=== PATIENT | male | born 1960 | race Caucasian/White ===

== ENCOUNTER 2016-07-13 06:07 | Day surgery (SDC) | payer BC ==
[2016-07-13] VITALS (13 sets, daily range): BP systolic 102–125; BP diastolic 58–76; PULSE 72–86; RESP 14–16; TEMP 97–98; O2SAT 92–98; Ht 175.3 cm; Wt 72.6 kg
[~2016-07-13] VITALS: Ht 175.3 cm; Wt 72.6 kg
[~2016-07-13 06:07] MED LIST: BUPR300T59 PO; DIPH25CA84 PO; LAMO300T2 PO; LORA-864 PO; METH750T89 PO; MULT-806 PO; OMEG-48 PO; PANT40TA25 PO; PARO20TA43 PO; PRAV20TA PO; PROP20TA7 PO; TAMS-1 PO
--- OUTSIDE RECORDS SUMMARY | 2016-07-13 06:11 | XMS REPORT | Continuity of Care Document ---
Author Author [facility] Organization [facility] Address Unknown Phone Unavailable Support Name Relationship Address Phone BONNY MEDEIROS MD Caregiver [facility] [address] [place] [address] CLAUDIA TRAMMELL [address] [place] [address] GLENIS BRIONES DO Caregiver [facility] [address] [place] [address] [address]UD[address] [place] [phone] JHON RYAN Next Of Kin [address] [place] [address] Insurance Providers Payer Name Policy Number Subscriber Name Relationship [facility] [id number] Emma Ryan 16 Self Advance Directives Directive Response Recorded Date/Time Ordered Resuscitation Status Full Code, unverified 12/01/13 3:02pm Problems No known problems or medical conditions. Medications Medication Dose Route Sig Days/Qty Instructions Order Date Discontinued Date Status Paroxetine Hcl 30 Mg PO DAILY 04/30/08 05/06/12 Discontinued [place] Carbonate 300 Mg PO 2 TAB PM 04/30/08 02/06/10 Discontinued Ibuprofen 200 Mg PO NEEDED 04/30/08 02/06/10 Discontinued Multivitamins 1 Tab PO NEEDED 04/30/08 02/06/10 Discontinued Loratadine 10 Mg PO NEEDED 02/06/10 02/21/10 Discontinued Omeprazole 20 Mg PO NEEDED 02/06/10 05/06/12 Discontinued [Lanotrigin] BEDTIME 02/06/10 05/06/12 Discontinued Risperidone 0.5 Mg PO DAILY 03/27/11 Active Pravastatin Sodium 20 Mg PO 03/27/11 05/06/12 Discontinued Pravastatin Sodium 20 Mg PO DAILY 04/24/11 05/11/11 Discontinued Multivitamins 1 Tab PO DAILY 05/06/12 Active Glucosamine/D3/[place] 1 Each PO DAILY 05/06/12 Active Meloxicam 15 Mg PO DAILY PRN 05/06/12 Active Methocarbamol 750 Mg PO EVERY 4 HOURS PRN 05/06/12 Active Pantoprazole Sodium 40 Mg PO DAILY 05/06/12 Active [Fish Oil] 12/01/13 Active Lamotrigine 1 Tab PO DAILY 12/01/13 Active Methylphenidate HCl 18 Mg PO DAILY 12/01/13 Active Loratadine/Pseudoephedrine 1 Tab PO DAILY 12/01/13 Active Pravastatin Sodium 20 Mg PO BEDTIME Take 1 tablet, by mouth, 1 times daily (at bedtime). 12/01/13 Active Ergocalciferol (Vitamin D2) 50,000 Unit PO WEEKLY 12/01/13 Active Bupropion HCl 300 Mg PO DAILY 30 Qty 12/01/13 Active Fluticasone Propionate 2 [place] EA NOSTRIL DAILY 12/01/13 Active Diphenhydramine HCl 2 Cap PO Q4H PRN SLEEP 12/02/13 Active Social History Social History Problem Response Recorded Date/Time Smoking Status Former smoker 12/02/2013 6:27am When did patient START smoking? 16 12/02/2013 6:27am When did patient STOP smoking? 26 12/02/2013 6:27am Chewing Tobacco Status No 05/06/2012 3:43pm Hx Substance Use No 12/02/2013 6:27am Hx Alcohol Use Y HISTORY OF ALCOHOL 30 YEARS AGO 12/02/2013 6:27am Has the pt used tobacco in the last 12 months No 12/02/2013 6:27am Query Response Start Date Stop Date Smoking Status Former smoker Hospital Discharge Instructions No hospital discharge instructions. Plan of Care No plan of care. Functional Status No functional status results. Allergies, Adverse Reactions, Alerts Allergen Type Severity Reaction Status Last Updated No Known Drug Allergies Allergy Unknown Active 04/29/08 Immunizations Name Given Type Hx Influenza Vaccination No Historical Hx Pneumococcal Vaccination No Historical Hx Influenza Vaccination No Historical Vital Signs Acute Vital Signs Vital Response Date/Time Temperature (Fahrenheit) 97.3 deg F (96.8 - 99.1) Temperature (Calculated Celsius) 36.18364 degrees C (36.0 - 37.3) Temperature Source Temporal Pulse Rate (adult) 74 bpm (60 - 100) Respiratory Rate 16 breaths/min (10 - 20) O2 Sat by Pulse Oximetry 95 % (90 - 100) Oxygen Delivery Method Room Air Blood Pressure 111/59 mm Hg Blood Pressure Source Automatic Cuff Height 5 ft 9 in Weight 166 lb Body Mass Index 24.0 kg/m^2 Results Test Source Date Result Interp. Ref. Range Comments Alanine Aminotransferase (ALT/SGPT) May 25, 2012 9:20am 61 U/L N 21 -72 Albumin May 25, 2012 9:20am 4.4 G/DL N 3.5-5.0 Albumin/Globulin Ratio May 25, 2012 9:20am 1.7 RATIO N 1.1-2.2 Alkaline Phosphatase May 25, 2012 9:20am 84 U/L N 38-126 Anion Gap May 25, 2012 9:20am 14 MEQ/L N 5-15 Aspartate Amino Transf (AST/SGOT) May 25, 2012 9:20am 38 U/L N 17- 59 BUN/Creatinine Ratio May 25, 2012 9:20am 8 RATIO N 6-26 Basophils # (Auto) May 25, 2012 9:20am 0.1 T/MM3 N 0-0.2 Basophils (%) (Auto) May 25, 2012 9:20am 0.9 % N 0-2 Blood Urea Nitrogen May 25, 2012 9:20am 7.0 MG/DL L 9-20 Calcium Level May 25, 2012 9:20am 8.8 MG/DL N 8.4-10.2 Calculated Osmolality May 25, 2012 9:20am 272 MOSM/KG N 261-280 Carbon Dioxide Level May 25, 2012 9:20am 26 MEQ/L N 22-30 Chloride Level May 25, 2012 9:20am 103 MEQ/L N 98-107 Cholesterol Level September 27, 2013 8:17am 150 MG/DL N 132-199 Cholesterol/HDL Ratio September 27, 2013 8:17am 4.7 RATIO N 0-5.0 Creatinine May 25, 2012 9:20am 0.9 MG/DL N 0.8-1.5 Eosinophils # (Auto) May 25, 2012 9:20am 0.2 T/MM3 N 0-0.5 Eosinophils (%) (Auto) May 25, 2012 9:20am 2.9 % N 0-4 Erythrocyte Sedimentation Rate May 25, 2012 9:20am 1 MM/HR N 0-15 Free Thyroxine February 17, 2011 6:54am 0.88 NG/DL N 0.78-2.19 Globulin May 25, 2012 9:20am 2.6 G/DL N 2.4-3.6 Glucose Level May 25, 2012 9:20am 88 MG/DL N 75-110 Hematocrit May 25, 2012 9:20am 47.4 % N 41-53 Hemoglobin May 25, 2012 9:20am 15.9 GM/DL N 13.5-17.5 LDL Cholesterol, Calculated September 27, 2013 8:17am 86.4 N 66-159 [place] Level April 24, 2008 9:47am 0.4 MMOL/L L 0.6-1.2 Lymphocytes # (Auto) May 25, 2012 9:20am 1.8 T/MM3 N 1-4.8 Lymphocytes (%) (Auto) May 25, 2012 9:20am 32.6 % N 23-45 Mean Corpuscular Hemoglobin May 25, 2012 9:20am 27.5 UUG N 26-34 Mean Corpuscular Hemoglobin Concent May 25, 2012 9:20am 33.5 GM/DL N 31-37 Mean Corpuscular Volume May 25, 2012 9:20am 82.0 UM3 N 80-100 Mean Platelet Volume May 25, 2012 9:20am 9.2 UM3 L 9.4-12.4 Monocytes # (Auto) May 25, 2012 9:20am 0.6 T/MM3 N 0-0.8 Monocytes (%) (Auto) May 25, 2012 9:20am 11.3 % H 0-9.0 Neutrophils # (Auto) May 25, 2012 9:20am 2.9 T/MM3 N 1.8-7.7 Neutrophils (%) (Auto) May 25, 2012 9:20am 52.1 % N 33-66 Platelet Count May 25, 2012 9:20am 247 T/MM3 N 130-400 Potassium Level May 25, 2012 9:20am 4.3 MEQ/L N 3.6-5 RDW Standard Deviation May 25, 2012 9:20am 40.0 FL N 36.9-50.2 Red Blood Count May 25, 2012 9:20am 5.78 M/MM3 N 4.50-5.90 Sodium Level May 25, 2012 9:20am 143 MEQ/L N 134-144 Thyroid Stimulating Hormone (TSH) May 25, 2012 9:20am 0.85 MIU/L N 0.47-4.68 Total Bilirubin May 25, 2012 9:20am 0.40 MG/DL N 0.20-1.30 Total Protein May 25, 2012 9:20am 7.0 G/DL N 6.3-8.2 Total Testosterone May 25, 2012 9:20am Ref lab rpt scanned - -- - 05/27/12 [id number] ---TESTOT previously reported as: SEND OUT Triglycerides Level September 27, 2013 8:17am 158 MG/DL N 40-160 Urine Bilirubin February 17, 2011 6:54am Negative - Urine Blood February 17, 2011 6:54am Negative - Urine Collection Type February 17, 2011 6:54am Voided - Urine Color February 17, 2011 6:54am Yellow - Urine Glucose (UA) February 17, 2011 6:54am Negative - Urine Ketones February 17, 2011 6:54am Negative - Urine Leukocyte Esterase February 17, 2011 6:54am Negative - Urine Nitrite February 17, 2011 6:54am Negative - Urine Protein February 17, 2011 6:54am Negative - Urine Specific [place] February 17, 2011 6:54am 1.005 L - Urine Turbidity February 17, 2011 6:54am Clear - Urine Urobilinogen February 17, 2011 6:54am Normal EU/DL - Urine pH February 17, 2011 6:54am 8.0 - VLDL Cholesterol September 27, 2013 8:17am 31.6 MG/DL H 0-28 White Blood Count May 25, 2012 9:20am 5.5 T/MM3 N 4.5-11.0 Lab Scanned Report September 27, 2013 12:08pm LAB TEST FORM REQUEST [id number] - EKG April 23, 2008 1:05pm Complete - HDL Cholesterol Direct September 27, 2013 8:17am 32 MG/DL L 40-60 Glomerular Filtration Rate Calc May 25, 2012 9:20am 88 - Immature Granulocyte # (Auto) May 25, 2012 9:20am 0.01 T/MM3 N 0.00 -0.03 Immature Granulocyte % (Auto) May 25, 2012 9:20am 0.2 % N 0.0-0.5 25-Hydroxy Vitamin D Total September 27, 2013 8:17am 45 ng/mL - The desirable level of 25-Hydroxy Vitamin D Total(D2 + D3) is 30-74 ng/mL.A level consistently >200 is potentially toxic. Vitamin D, 25-Hydroxy performed at [facility] Reference Lab, [facility] [place][note 2][address] [place] [address] Oil Spot Washer Shandra Palm MD 25-Hydroxy Vitamin D2 September 27, 2013 8:17am 9 ng/mL - 25-Hydroxy Vitamin D3 September 27, 2013 8:17am 36 ng/mL - Urine Microscopic Not Indicated February 17, 2011 6:54am Not indicated - Procedures Procedure Status Date Provider(s) Esophagogastroduodenoscopy (EGD) with closed biopsy completed 12/02/13 GLENIS BRIONES DO Encounters Encounter Location Date/Time Registered Clinic [facility] 09/27/13 8:12am
[2016-07-13] MEDS ORDERED: LIDOCAINE 1% (10mg/ml) 2ml SDV INJ ONE (07:00)
[2016-07-13] MEDS ORDERED: LR 1,000 ML IV SCH (07:00)
[2016-07-13] MEDS ORDERED: SALINE FLUSH 10ml SYRINGE ONE (07:07)
[2016-07-13] MEDS ORDERED: MIDAZOLAM 5mg/5ml INJECTION ONE (07:07)
[2016-07-13] MEDS ORDERED: FENTANYL 100mcg/2ml INJECTION ONE (07:07)
[2016-07-13] MEDS ORDERED: LIDOCAINE VISCOUS 2% Oral Soln 15ml UD ONE (07:11)
[2016-07-13] MEDS ORDERED: BENZOCAINE 20% Top. Anesth. SPRAY UD ONE (07:11)
[2016-07-13] MEDS ORDERED: FENTANYL 100mcg/2ml INJECTION IV PRN (07:50)
[2016-07-13] MEDS ORDERED: MIDAZOLAM 5mg/5ml INJECTION IV PRN (07:50)
--- NOTE | 2016-07-13 13:02 | OPNOTEF ---
DATE OF PROCEDURE: 07/13/2016 PHYSICIAN: Catracho Rudolph DO PROCEDURE: Esophagogastroduodenoscopy. INDICATION FOR PROCEDURE History of Fajardo's and continued reflux. ASA CLASSIFICATION: 2 DESCRIPTION OF PROCEDURE Consent was signed and on the chart. Routine monitoring with ECG, continuous oximetry and noninvasive blood pressure was performed throughout the procedure and found to be within normal limits. IV sedation was performed with a total of 5 mg of Versed and 50 mcg of fentanyl. Prior to the procedure, the patient was brought to the endoscopy lab where a brief review of his medical history and physical exam was performed. The procedure was described to him. He was agreeable to continue. All questions were answered. He was sprayed with a topical anesthetic to the posterior pharynx, given IV sedation, placed in left lateral decubitus position. The endoscope was advanced into the posterior pharynx without difficulty. Visualization of his vocal cords was normal. The endoscope was advanced into the esophagus down through the stomach through the pylorus into the second part of the duodenum. The second part of the duodenum was normal. The endoscope was brought back to the first part of the duodenum at the duodenal cap and this part demonstrated duodenitis which was photographed and biopsied. The antrum also had evidence of antral gastritis which was photographed and biopsied. The endoscope was retroflexed. There was no appreciable hiatal hernia at this time. The stomach was decompressed and the endoscope brought back to the GE junction noting reflux esophagitis, LA classification A, with islands of Fajardo's change. A photograph was taken, biopsies performed. The remainder of his esophagus was free of pathology. He tolerated the procedure well. There were no complications. IMPRESSION 1. Reflux esophagitis, LA classification A, with some Fajardo's type change - biopsied. 2. Antral gastritis - biopsied. 3. Duodenitis at the duodenal cap - biopsied. RECOMMENDATIONS 1. Review the path report when available. 2. Continue Protonix and Carafate. MTDD
== END 2016-07-13 09:15 | disposition home or self-care (01) ==
LOC: NSC 06:07
PROVIDERS: ATTEND Internal Medicine
DX: K22.70 Barrett's esophagus without dysplasia (principal); K21.0 Gastro-esophageal reflux disease with esophagitis; K29.60 Other gastritis without bleeding; K29.80 Duodenitis without bleeding; N40.1 Benign prostatic hyperplasia with lower urinary tract symptoms; R39.11 Hesitancy of micturition; G25.9 Extrapyramidal and movement disorder, unspecified; E78.2 Mixed hyperlipidemia; E55.9 Vitamin D deficiency, unspecified; F32.9 Major depressive disorder, single episode, unspecified; Z79.899 Other long term (current) drug therapy; Z87.891 Personal history of nicotine dependence
CPT/HCPCS: 43239; J2250; J3010; J7120

== ENCOUNTER 2016-07-20 02:41 | Emergency (ER) | payer BC ==
[~2016-07-20] VITALS: Ht 175.3 cm; Wt 74.4 kg
--- OUTSIDE RECORDS SUMMARY | 2016-07-20 02:45 | XMS REPORT | Continuity of Care Document ---
Author Author [facility] Organization [facility] Address Unknown Phone Unavailable Support Name Relationship Address Phone BONNY MEDEIROS MD Caregiver [facility] [address] [place] [address] CLAUDIA TRAMMELL [address] [place] [address] GLENIS BRIONES DO Caregiver [facility] [address] [place] [address] CLAUDIA [address] [place] [phone] JHON RYAN Next Of Kin [address] [place] [address] Insurance Providers Payer Name Policy Number Subscriber Name Relationship [facility] [id number] Emma Ryan 16 Self Advance Directives Directive Response Recorded Date/Time Ordered Resuscitation Status Full Code, unverified 12/01/13 3:02pm Problems No known problems or medical conditions. Medications Medication Dose Route Sig Days/Qty Instructions Order Date Discontinued Date Status Paroxetine Hcl 30 Mg PO DAILY 04/30/08 05/06/[address] [place] [address] [place] Carbonate 300 Mg PO 2 TAB PM [...] 30 Qty 12/01/13 Active Fluticasone Propionate 2 [place] EA NOSTRIL DAILY 12/01/13 Active Diphenhydramine HCl [...] F (96.8 - 99.1) Temperature (Calculated Celsius) 36.75728 degrees C (36.0 - 37.3) Temperature Source [...] September 27, 2013 8:17am 86.4 N 66-[address] [place] [address] [place] Level April 24, 2008 9:47am 0.4 MMOL/L [...] 17, 2011 6:54am Negative - Urine Specific [place] February 17, 2011 6:54am 1.005 L - [...] 27, 2013 12:08pm LAB TEST FORM REQUEST [id number] - EKG April 23, 2008 1:05pm Complete [...] potentially toxic. Vitamin D, 25-Hydroxy performed at [facility] Reference Lab, [facility] [place] [address] Cementer Machine Applicator Shandra Palm MD 25-Hydroxy Vitamin D2 September 27, 2013 8:17am 9 ng/mL - 25-Hydroxy Vitamin D3 September 27, 2013 8:17am 36 ng/mL - Urine Microscopic Not Indicated February 17, 2011 6:54am Not indicated - Procedures Procedure Status Date Provider(s) Esophagogastroduodenoscopy (EGD) with closed biopsy completed 12/02/13 GLENIS BRIONES DO Encounters Encounter Location Date/Time Registered Clinic [facility] 09/27/13 8:12am
[2016-07-20 02:46] VITALS: Ht 175.3 cm; Wt 74.4 kg
--- OUTSIDE RECORDS SUMMARY | 2016-07-20 02:46 | XMS REPORT | Continuity of Care Document ---
Author Author [facility] Organization [facility] Address Unknown Phone Unavailable Support Name Relationship Address Phone GLENIS BRIONES DO Caregiver [address] [place] [address] Unavailable GLENIS BRIONES DO Caregiver [address] [place] [address] Unavailable JHON RYAN Next Of Kin [address] [place], [place] [id number] Insurance Providers Guarantor Emma Ryan Address [address] [place] [address] Email [email or web address] [facility] Policy Number [id number] Subscriber's Name Emma Ryan Relationship 16 Self Group Number [id number] Advance Directives Directive Response Recorded Date/Time Ordered Resuscitation Status Full Code, unverified 07/12/16 1:52pm Resuscitation Documents on File No 07/13/16 6:35am DPOA for Healthcare Only No 07/13/16 6:35am Living Will No 07/13/16 6:35am Problems No problem information available. Medications Current Home Medications Medication Dose Units Route Directions Days Qty Instructions Start Date Bupropion Hcl (Bupropion Xl) 300 Mg Tab.er.24h 300 Mg Oral Daily 12/01/13 Diphenhydramine Hcl (Benadryl) 25 Mg Capsule 1 Cap Oral Every 4 Hours as needed for Sleep 12/02/13 Lamotrigine (Lamotrigine Er) 300 Mg Tab.er.24 1 Tab Oral Daily Loratadine/Pseudoephedrine (Claritin-D 24 Hour Tablet) 1 Each Tab.er.24h 1 Tab Oral Daily 12/01/13 Methocarbamol (Robaxin-750) 750 Mg Tablet 750 Mg Oral Every 4 Hours as needed 05/06/12 Multivitamins (Multivitamin) 1 Tab Tablet 1 Tab Oral Daily [place]-3 Fatty Acids/Fish Oil (Fish Oil Pearls Softgel) 1 Each Capsule 1 Cap Oral Daily 01/11/15 Pantoprazole Sodium (Protonix) 40 Mg Tablet.dr 40 Mg Oral Daily 05/06/12 Paroxetine Hcl (Paxil) 20 Mg Tablet 20 Mg Oral Daily 07/12/16 Pravastatin Sodium (Pravachol) 20 Mg Tablet 20 Mg Oral Bedtime Take 1 tablet, by mouth, 1 times daily (at bedtime). 12/01/13 Propranolol Hcl 20 Mg Tablet 1 Tab Oral Daily 07/12/16 Tamsulosin Hcl (Flomax) 0.4 Mg Capsule 0.4 Mg Oral Bedtime Take 1 capsule, by mouth, one time a day at BEDTIME. 07/12/16 Past Home Medications Medication Directions Ordered Status Fish Oil , 12/01/13 Discontinued Ibuprofen 200 Mg Tablet, 200 Mg Oral As Needed 04/30/08 Discontinued Lamotrigine (Lamotrigine Er) 25 Mg Tab.er.24, 1 Tab Oral Daily 12/01/13 Discontinued Lanotrigin , Bedtime 02/06/10 Discontinued [place] Carbonate (Lithobid) 300 Mg Tablet.sa, 300 Mg Oral 2 Tab Pm 04/30/08 Discontinued Loratadine (Claritin) 10 Mg Tablet, 10 Mg Oral As Needed 02/06/10 Discontinued Multivitamins (Multivitamin) 1 Tab Tablet, 1 Tab Oral As Needed 04/30/08 Discontinued Omeprazole (Prilosec) 20 Mg Capsule.dr, 20 Mg Oral As Needed 02/06/10 Discontinued Paroxetine Hcl (Paxil) 30 Mg Tablet, 30 Mg Oral Daily 04/30/08 Discontinued Pravastatin Sodium 20 Mg Tablet, 20 Mg Oral 03/27/11 Discontinued Pravastatin Sodium 20 Mg Tablet, 20 Mg Oral Daily 04/24/11 Discontinued Social History Social History Problem Response Recorded Date/Time Onset Date Status Reason for Hospitalization EGD 07/13/2016 8:51am Not Applicable Not Applicable Chewing Tobacco Status No 05/06/2012 3:43pm Not Applicable Not Applicable Hx Substance Use No 07/13/2016 6:32am Not Applicable Not Applicable Hx Alcohol Use No 07/13/2016 6:32am Not Applicable Not Applicable Has the pt used tobacco in the last 12 months No 07/13/2016 6:32am Not Applicable Not Applicable Query Response Start Date Stop Date Smoking Status Former smoker Hospital Discharge Instructions Instructions: Care Instructions: I was in the hospital because (patient own words): EGD Discharge Diet: You may resume your usual diet. Discharge Activity: You may resume your usual activity. Follow Up Appointments: Follow up with Dr. Briones as instructed. You can call his office for any questions or concerns. Pending Lab / Results: Will be notified Patient Instructions: Do not drive, operate machinery, drink alcohol, or sign important papers for 24 hours. Expected Signs/Symptoms: You may have some gas discomfort. Notify Physician If: Contact Dr. Briones if you have a fever over 101 degrees, severe abdominal pain, or severe rectal bleeding. During Business Hours:: During office hours, call Dr. Briones's office at [phone]. After Business Hours:: After hours, please call [facility] at [phone] and have the slicing machine operator page Dr. Briones or the covering physician. Pain Management/Treatment: You should not have significant pain following the procedure. Wound/Incision Care: No wound care required. Condition at time of discharge: Good Plan of Care Discharge Date 07/13/16 9:15am Instructions/Education Provided [facility] Services Prescriptions See Medication Section Functional Status Query Response Date Recorded Ability to complete ADL's impeded by No change July 13, 2016 6:35am Allergies, Adverse Reactions, Alerts Allergen Type Severity Reaction Status Last Updated No Known Drug Allergies Allergy Unknown Active 07/13/16 Immunizations Query Response on File Recorded Date/Time Hx Influenza Vaccination No 07/13/16 6:32am Hx Pneumococcal Vaccination No 07/13/16 6:32am Hx Influenza Vaccination No 07/13/16 6:32am Vital Signs Acute Vital Signs Vital Response Date/Time Temperature (Fahrenheit) 97.0 deg F (96.8 - 99.1) 07/13/2016 8:20am Temperature (Calculated Celsius) 36.61753 degrees C (36.0 - 37.3) 07/13/2016 8:20am Temperature Source Temporal 07/13/2016 8:20am Pulse Rate (adult) 80 bpm (60 - 100) 07/13/2016 9:15am Respiratory Rate 16 breaths/min (10 - 20) 07/13/2016 9:15am O2 Sat by Pulse Oximetry 96 % (90 - 100) 07/13/2016 9:15am Oxygen Delivery Method Nasal Cannula 07/13/2016 7:24am Oxygen Delivery Method Room Air 07/13/2016 9:15am Oxygen Flow Rate 2.00 L/min 07/13/2016 7:24am Blood Pressure 112/64 mm Hg 07/13/2016 9:15am Blood Pressure Source Automatic Cuff 07/13/2016 9:15am Height (Feet) 5 feet 07/13/2016 6:20am Height (Inches) 9.00 inches 07/13/2016 6:20am Weight (Kilograms) 72.600 kg 07/13/2016 6:20am Body Mass Index (BMI) 23.6 07/13/2016 6:20am Results No known relevant diagnostic tests, laboratory data and/or discharge summary. Procedures Procedure Status Date Provider(s) Esophagogastroduodenoscopy (EGD) with closed biopsy Completed 07/13/16 GLENIS BRIONES DO Encounters Encounter Location Arrival/Admit Date Discharge/Depart Date Attending Provider Registered [facility] 07/13/16 6:07am GLENIS BRIONES DO
--- OUTSIDE RECORDS SUMMARY | 2016-07-20 02:54 | XMS REPORT | Continuity of Care Document ---
Author Author [facility] Organization [facility] Address Unknown Phone Unavailable Support Name Relationship Address Phone BONNY MEDEIROS MD Caregiver [facility] [address] [place] [address] CLAUDIA TRAMMELL [address] [place] [address] GLENIS BRIONES DO Caregiver [facility] [address] [place] [address] [address] [place] [phone] JHON RYAN Next Of Kin [address] [place] [address] Insurance Providers Payer Name Policy Number Subscriber Name Relationship [facility] [id number] Emma Ryan 16 Self Advance Directives Directive Response Recorded Date/Time Ordered Resuscitation Status Full Code, unverified 12/01/13 3:02pm Problems No known problems or medical conditions. Medications Medication Dose Route Sig Days/Qty Instructions Order Date Discontinued Date Status Paroxetine Hcl 30 Mg PO DAILY 04/30/08 05/06/12 Discontinued [place] Carbonate 300 Mg PO 2 TAB PM [...] 30 Qty 12/01/13 Active Fluticasone Propionate 2 [place] EA NOSTRIL DAILY 12/01/13 Active Diphenhydramine HCl [...] F (96.8 - 99.1) Temperature (Calculated Celsius) 36.43899 degrees C (36.0 - 37.3) Temperature Source [...] September 27, 2013 8:17am 86.4 N 66-159 [place] Level April 24, 2008 9:47am 0.4 MMOL/L [...] 17, 2011 6:54am Negative - Urine Specific [place] February 17, 2011 6:54am 1.005 L - [...] 27, 2013 12:08pm LAB TEST FORM REQUEST [id number] - EKG April 23, 2008 1:05pm Complete [...] potentially toxic. Vitamin D, 25-Hydroxy performed at [facility] [address] Reference Lab, [facility] [place] [address] Dragger Out Shandra Palm MD 25-Hydroxy Vitamin D2 September 27, 2013 8:17am 9 ng/mL - 25-Hydroxy Vitamin D3 September 27, 2013 8:17am 36 ng/mL - Urine Microscopic Not Indicated February 17, 2011 6:54am Not indicated - Procedures Procedure Status Date Provider(s) Esophagogastroduodenoscopy (EGD) with closed biopsy completed 12/02/13 GLENIS BRIONES DO Encounters Encounter Location Date/Time Registered Clinic [facility] 09/27/13 8:12am
[2016-07-20] MEDS ORDERED: NORMAL SALINE 1,000 ML IV ONE (03:15)
[2016-07-20] MEDS ORDERED: KETOROLAC 30mg/ml INJECTION IV ONE (03:15)
[2016-07-20] MEDS ORDERED: METOCLOPRAMIDE 10mg/2ml INJECTION IV ONE (03:15)
--- NOTE | 2016-07-20 03:35 | NUR ---
IVL IVL STARTED IN THE RIGHT HAND WITH #[id number], FIRST ATTEMPT BLOOD OBTAINED FOR LAB PT LUCILA WELL
--- NOTE | 2016-07-20 03:39 | NUR ---
IV FLUID #1 IV 1000CC NS STARTED AT 999CC/HR IV SITE WITHOUT REDNESS OR SWELLING
--- NOTE | 2016-07-20 03:40 | NUR ---
REGLAN IV REGLAN GIVEN ORDERED
[2016-07-20 03:43] LABS: BASOPHILS # (AUTO) 0.1 T/MM3 (0-0.2); BASOPHILS % (AUTO) 1.4 % (0-2); EOSINOPHILS # (AUTO) 0.2 T/MM3 (0-0.5); EOSINOPHILS % (AUTO) 2.8 % (0-4); HGB - HEMOGLOBIN 13.5 GM/DL (13.5-17.5); IMMATURE GRANULOCYTE # (AUTO) 0.01 T/MM3 (0.00-0.03); IMMATURE GRANULOCYTE % (AUTO) 0.2 % (0.0-0.5); LYMPHOCYTES # (AUTO) 1.1 T/MM3 (1-4.8); LYMPHOCYTES % (AUTO) 17.1 % (23-45); MEAN CORPUSCULAR HGB 27.3 UUG (26-34); MEAN CORPUSCULAR HGB CONC(MCHC 32.9 GM/DL (31-37); MONOCYTES # (AUTO) 0.7 T/MM3 (0-0.8); NEUTROPHILS #(AUTO)-ABSOLUTE 4.3 T/MM3 (1.8-7.7); NEUTROPHILS % (AUTO) 67.5 % (33-66); RED BLOOD COUNT 4.94 M/MM3 (4.50-5.90); WBC - WHITE BLOOD COUNT 6.4 T/MM3 (4.5-11.0)
--- NOTE | 2016-07-20 03:44 | NUR ---
TORADOL IV TORADOL GIVEN FOR PAIN PT RATES HIS PAIN 2/10 RIGHT NOW WHEN SITTING UPRIGHT
--- NOTE | 2016-07-20 03:50 | ERPDOC ---
Departure Disposition Decision Date: Jul 20, 2016 Disposition Decision Time: 05:41 Disposition: 01 DISCHARGED HOME, SELF-CARE Impression Impression Impression: Primary Impression: Abdominal mass, left upper quadrant Additional Impression: Abdominal mass, right lower quadrant Severity: Moderate Condition: Improved Seen By: Physician only Referrals: GLENIS BRIONES DO (Family) Patient Instructions: Abdominal Pain (ED) Problems/Meds/Labs Reviewed?: Yes Medications reviewed and manag: Yes Additional Instructions: Reglan 10 mg tablets, one tablet up to 4 times daily as needed for abdominal pain/cramps/nausea May also use any [id number] medications for pain needed Call Dr. Briones's office at 8:30 this morning to arrange work in appointment today Follow up care ordered?: Yes Mental Status: Alert Scripts Metoclopramide HCl (Reglan) 10 Mg Tablet 10 MG PO QID Y for n/v/cramps, #30 TAB 0 Refills Prov: GLENIS FORMAN MD 07/20/16 HPI - Abdominal Pain General Chief Complaint: Abdominal Pain Stated Complaint: LEFT SIDE ABD PAIN Time Seen by Provider: 02:49 Source: patient History/Exam Limitations: no limitations HPI - Abdominal Pain Initial Comments Patient presents with recurrence of his left sided abdominal pain this had on and off for several months. Tonight the patient came in because with the abdominal pain he felt be a large nodule or abdominal mass. Patient has had similar pains with radiation into the bilateral flanks for several months, was seen by urologist and told that his urine and prostate were both normal, subsequently had an EGD done with Dr. Briones earlier this month. EGD was essentially unremarkable with exact chronic Fajardo's esophagus and GERD /gastritis. The patient has had no imaging, and notes persistent "mushy stools" for at least 15 months. Patient's last BM was earlier in the day yesterday, and patient felt that he could not evacuate his stool and used Dulcolax suppository to produce his normal stool. Patient feels as though he is often constipated, but has persistent mushy stools, without hard stools. Occurred At: home Duration: 4-6 hrs Quality: aching, cramping Location: LUQ, LLQ 1 - Abdominal pain, tenderness, palpable abdominal mass Associated Symptoms: DENIES: back pain, chest pain, diaphoresis, fatigue, fever /chills, headache, heartburn, nausea/vomiting, rash, shortness of breath, swelling/mass in abdomen, syncope, weakness Hx of Similar Symptoms: Yes Allergies: Coded Allergies: No Known Drug Allergies (Verified Allergy, Unknown, 07/13/16) Past History Past Medical History GI: GERD (Fajardo's esophagus) Surgical History General: EGD Vaccines Hx Influenza Vaccination: No Hx Pneumococcal Vaccination: No Social History Smoking Status: Never smoker Second Hand Exposure: No Substance Use Type: does not use Alcohol Intake: none Record Review Pertinent history updated: Yes Review of Systems Constitutional Constitutional: DENIES: appetite decrease, appetite increase, chills, dizziness , fever, weakness ENMT Ears: DENIES: pain Hearing: DENIES: hearing loss, tinnitus Balance: DENIES: vertigo Mouth/Throat: DENIES: change in swallowing, change in voice, hoarsness, painful swallowing, sore throat Cardiovascular Cardiac: DENIES: chest pain, dyspnea on exertion Rhythm/Rate: DENIES: irregular beat, palpitations, tachycardia Vascular: DENIES: pedal edema Pulmonary Respiratory: DENIES: cough, dyspnea, pleuritic chest pain GI Upper Abdomen: pain, DENIES: dysphagia, food intolerances, heartburn/ indigestion, hematemesis, nausea, vomiting Lower Abdomen: constipation, pain, DENIES: blood in stool, aby-colored stools , diarrhea, melena, painful BM General: DENIES: burning, dysuria, frequency, pain, urgency Musculoskeletal General: DENIES: cramps, joint pain, joint swelling, pain, weakness Integumentary Skin: DENIES: rash, sores Neurological General: DENIES: headache, numbness, tingling, vertigo, weakness Psychiatric Psychiatric: DENIES: anxiety, depression, nervousness Physical Exam General General Nourishment: well nourished, well developed, appears stated age, thin General Body Habitus: well groomed Vitals and Pain First Documented Vital Signs Date Time Temp Pulse Resp B/P Pulse Ox O2 Delivery O2 Flow Rate FiO2 07/20/16 02:46 97.8 82 16 127/77 95 Room Air Weight: Kilograms: Height (feet): 5 Height (inches): 9.00 Triage Pain Scale: RN VS reviewed by Provider: Yes Normal Exams: Head: Normocephalic w/o trauma Eyes: Pupils are PERRLA w/ EOMI, No scleral icterus, irritation, or foreign bodies noted ENMT: No facial trauma, nasal exudates, pharyngeal erythema, or exudates are noted Neck: Full range of motion, without adenopathy, JVD, bruits or thyromegaly Chest/Resp: Clear all clement, with good airflow, and symmetry bilaterally CV: Regular rate and rhythm, without murmur or gallop, Pulses 2+ all extremities, capillary refill, <2 seconds all ext., no pedal edema noted Lymphatic: No lymphadenopathy, or lymphedema noted Musculoskeletal: No tenderness, or deformity noted, good range of motion, all extremities Integumentary: No rashes, hives, or bruising noted, hair and nails, without abnormality Neurologic: Patient is alert, and oriented, cranial nerves, motor/sensory/ cerebellar, exams w/o gross deficits, to observation Psychiatric: Patient exhibits, appropriate attention, emotion and affect Abdomen (brief) Abdominal Brief: FOUND: bowel normo active x4, soft, tender (tender left upper to left mid abdominal palpable mass, questionable pulsatile) Progress Results/Orders Orders Procedure Category Date Status Time Iv Lock (Ed Only) EDM 07/20/16 Transmitted 03:10 Cbc W/Auto LAB 07/20/16 Complete Diff-Reflex Manual Cmp - Comprehensive LAB 07/20/16 Complete Metabolic Lipase LAB 07/20/[address] Abd/Pelvis CT 07/20/16 Taken W/Contrast Only Ketorolac (Toradol) PHA 07/20/16 Complete 03:15 Metoclopramide PHA 07/20/16 Complete (Reglan Inj) 03:15 Normal Saline (Normal PHA 07/20/16 Complete Saline Iv) 03:15 Iohexol (Omnipaque) PHA 07/20/16 Complete 04:07 Normal Saline (Ns) PHA 07/20/16 Complete 04:07 Saline Flush (Iv PHA 07/20/16 Complete Flush) 04:07 Metoclopramide PHA 07/20/16 In Process (Reglan) 05:45 Lab Results Laboratory Tests Test 07/20/16 03:36 White Blood Count 6.4T/MM3 Red Blood Count 4.94M/MM3 Hemoglobin 13.5GM/DL Hematocrit 41.0% Mean Corpuscular Volume 83.0UM3 Mean Corpuscular Hemoglobin 27.3UUG Mean Corpuscular Hemoglobin Concent 32.9GM/DL RDW Standard Deviation 38.8FL Platelet Count 245T/MM3 Mean Platelet Volume 9.0UM3 Immature Granulocyte % (Auto) 0.2% Neutrophils (%) (Auto) 67.5% Lymphocytes (%) (Auto) 17.1% Monocytes (%) (Auto) 11.0% Eosinophils (%) (Auto) 2.8% Basophils (%) (Auto) 1.4% Absolute Immature Granulocyte (auto 0.01T/MM3 Absolute Neutrophils (auto) 4.3T/MM3 Absolute Lymphocytes (auto) 1.1T/MM3 Absolute Monocytes (auto) 0.7T/MM3 Absolute Eosinophils (auto) 0.2T/MM3 Absolute Basophils (auto) 0.1T/MM3 Turbidity < 20 Sodium Level 141MEQ/L Potassium Level 4.0MEQ/L Chloride Level 104MEQ/L Carbon Dioxide Level 26MEQ/L Anion Gap 11MEQ/L Blood Urea Nitrogen 14.0MG/DL Creatinine 1.0MG/DL Glomerular Filtration Rate Calc 77 BUN/Creatinine Ratio 14RATIO Glucose Level 94MG/DL Calculated Osmolality 272MOSM/KG Calcium Level 8.9MG/DL Total Bilirubin 0.50MG/DL Icterus Index < 2 Aspartate Amino Transf (AST/SGOT) 48U/L Alanine Aminotransferase (ALT/SGPT) 59U/L Alkaline Phosphatase 127U/L Total Protein 6.6G/DL Albumin 3.9G/DL Globulin 2.7G/DL Albumin/Globulin Ratio 1.4RATIO Lipase 162U/L Chemistry Specimen Hemolysis < 15 Medications Current ED Medications Ketorolac Tromethamine (Toradol) 30 mg O ONCE IV Last administered on 03:44; Start 07/20/16 at 03:15; Stop 07/20/16 at 03:16; Status DC Metoclopramide HCl 10 mg 10 mg O ONCE IV Last administered on 07/20/16 03:40 ; Start 07/20/16 at 03:15; Stop 07/20/16 at 03:16; Status DC Sodium Chloride (Normal Saline IV) 1,000 ml @ 0 mls/hr Q0M ONCE IV Last administered on 07/20/16 03:39; Start 07/20/16 at 03:15; Stop 07/20/16 at 03:16 ; Status DC Iohexol 1 bottle 1 bottle STK-MED ONCE .ROUTE ; Start 07/20/16 at 04:07; Stop at 04:08; Status DC Sodium Chloride (NS) 100 ml @ As Directed STK-MED ONCE .ROUTE ; Start 07/20/16 at 04:07; Stop 07/20/16 at 04:08; Status DC Sodium Chloride (Iv Flush) 10 ml STK-MED ONCE .ROUTE ; Start 07/20/16 at 04:07; Stop 07/20/16 at 04:08; Status DC Progress Progress Patient given Reglan 10 mg, Toradol 30 mg, 1 L normal saline - to relief of symptoms CBC - n CMP/L - n CT abdomen - multiple lobulated masses throughout the abdomen consistent with can climb written adenopathy. Largest masses in the left upper quadrant 10 x 10 x 12 cm, additional mass in the right lower quadrant 6 x 10 x 7 cm, as well as an ill-defined large adenopathy inferior to the aortic bifurcation along the common iliac vessels. Findings are most consistent with probable lymphoma. Case is discussed with Dr. Briones who will see the patient later this morning in clinic and arrange oncology referral today as well as continued workup and therapy GLENIS FORMAN MD Jul 20, 2016 03:50
[2016-07-20 03:56] LABS: ALBUMIN 3.9 G/DL (3.5-5.0); ALBUMIN/GLOBULIN RATIO 1.4 RATIO (1.1-2.2); ALKALINE PHOSPHATASE 127 U/L (38-126); ALT (SGPT) 59 U/L (21-72); ANION GAP 11 MEQ/L (5-15); AST (SGOT) 48 U/L (17-59); BUN/CREATININE RATIO 14 RATIO (6-26); CALCIUM 8.9 MG/DL (8.4-10.2); CHLORIDE 104 MEQ/L (98-107); CO2 - CARBON DIOXIDE 26 MEQ/L (22-30); GLOMERULAR FILTRATION RATE 77; GLUCOSE 94 MG/DL (75-110); LIPASE 162 U/L (23-300); SODIUM 141 MEQ/L (134-144); TOTAL PROTEIN 6.6 G/DL (6.3-8.2)
[2016-07-20] MEDS ORDERED: IOHEXOL 300 MG/ML 100ml INJECTION ONE (04:07)
[2016-07-20] MEDS ORDERED: NORMAL SALINE 100 ML ONE (04:07)
[2016-07-20] MEDS ORDERED: SALINE FLUSH 10ml SYRINGE ONE (04:07)
--- NOTE | 2016-07-20 04:10 | NUR ---
CT PT TAKEN TO CT PER CART
--- NOTE | 2016-07-20 04:28 | NUR ---
ROOM PT RETURNED TO ROOM PER CART FROM CT PT REPORTS HE DID FINE LAYING FLAT ON THE CT TABLE STATES THE PAIN MED HELPED
--- NOTE | 2016-07-20 04:58 | NUR ---
IV FLUID IV NS INFUSED IV SITE WITHOUT REDNESS OR SWELLING PT REPORTS HE IS RESTING SOME AND FEELS GOOD EVEN LAYING BACK RATES PAIN "VERY SLIGHT, NOT EVEN .5" DENIES NAUSEA
--- NOTE | 2016-07-20 05:41 | NUR ---
STATUS SITTING AT BEDSIDE WITH PT PT REPORTS HE IS KIND OF IN A STATE OF SHOCK RIGHT NOW HAD PLANS TO DRIVE TO [place] THIS MORNING TO GO SPEND TIME WITH HIS SON STATES THIS IS GOING TO BE A HARD PHONE CALL TO MAKE HE PLANS ON TALKING WITH HIS AT HOME SHE HAS RECENTLY SILVIA PUT ON DISABILITY WITH HER CHRONIC BACK PROBLEMS AND HE HELPS HER ALOT. STATES HE IS VERY THANKFUL FOR HIS LOVED ONES AND THE SUPPORT THEY WILL PROVIDE FOR HIM. AWARE THAT HE WILL SEE PCP TODAY AND THERE WILL PROBABLY BE MORE TESTING DONE FROM THERE. PT SMILES AND SAYS "A LONG AND DIFFICULT DAY".
[2016-07-20] MEDS ORDERED: METO-230 PO (05:44)
--- NOTE | 2016-07-20 05:46 | NUR ---
BATHROOM PT AMBULATORY TO BATHROOM TO VOID
--- NOTE | 2016-07-20 05:54 | NUR ---
IVL IVL DC'D WITH CATH INTACT PRESSURE TO IV SITE TILL NOT BLEEDING DRSG APPLIED TO IV SITE PT LUCILA WELL
--- NOTE | 2016-07-20 05:55 | NUR ---
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 ENCOURAGED PT TO ASK THIS OF PCP OR ONCOLOGIST, BUT THEY MAY NOT KNOW FOR SURE UNTIL IT IS ACTUALLY DETERMINED WHAT THE MASS IS AND THE SOURCE. ENCOURAGED PT TO WRITE DOWN ANY QUESTIONS THAT HE OR HIS FAMILY HAS AND TAKE THEM WITH HIM TODAY. DISCUSSED HOW IT WILL BE HARD TO REMEMBER ALL THE QUESTIONS WHEN THERE IS ALOT GOING ON AND DIFFERENT TESTS/INFORMATION BEING DONE/GIVEN. PT VERBALIZED HOW HARD THIS IS GOING TO BE ON HIS MOTHER AND DOESN'T KNOW HOW HE WILL BE ABLE TO TELL HER WHAT IS GOING ON.
--- NOTE | 2016-07-20 06:01 | NUR ---
INSTRUCTIONS DISMISSAL AND MEDICATION INSTRUCTIONS GIVEN TO PT DISP 4-REGLAN TABS WITH INSTRUCTIONS AND RX FOR SAME PT VERBALIZED UNDERSTANDING OF ALL
[2016-07-20 06:03] VITALS: BP 121/62; PULSE 89; RESP 14; TEMP 97.8; O2SAT 95
--- NOTE | 2016-07-20 06:03 | NUR ---
DISMISS PT DISMISSED AMBULATORY
--- NOTE | 2016-07-20 07:58 | DI ---
Indication: ITS.REASON: left abdominal mass PROCEDURE: CT ABD/PELVIS W/CONTRAST ONLY: Encounter: Initial Comparison: None Technique: Axial CT images were performed through the abdomen and pelvis after the administration of intravenous contrast. Coronal and sagittal two-dimensional reformats. Automated Exposure Control and Iterative Reconstruction dose reducing techniques were utilized. Contrast: Omnipaque 300 100 mL Findings: Mild atelectasis in the lung bases. The liver is normal. The spleen, pancreas and adrenal glands are within normal limits. Kidneys are normal. There is extensive mesenteric adenopathy with some enlarged retroperitoneal lymph nodes as well. There is a conglomerate mass of matted nodes measuring 9.9 x 7.6 cm and the left abdomen on axial image #30. Enlarged aortocaval node on this same image measures 2.6 cm in short axis. Mass in the right lower mesentery on image #45 measures 5.9 x 6.7 cm in size. Bladder is mildly distended. Prostate and rectum are unremarkable. No evidence of a bowel obstruction. Bone windows are without lytic or blastic lesion. There is bilateral L5 spondylolysis and grade 1 spondylolisthesis of L5 on S1. Probable bone island in the T11 vertebra. Additional amandeep mass inferior to the aortic bifurcation on image #54 measuring 2.9 x 5.4 cm. Impression: Extensive abdominal adenopathy most likely due to lymphoma. Metastatic disease is a consideration as well. Biopsy is recommended. There is a preliminary report by [employer]. .
== END 2016-07-20 06:03 | disposition home or self-care (01) ==
LOC: ED 02:41
DX: R19.02 Left upper quadrant abdominal swelling, mass and lump (principal); R19.03 Right lower quadrant abdominal swelling, mass and lump
CPT/HCPCS: 74177; 80053; 83690; 85025; 96361; 96374; 96375; 99284; J1885; J2765; J7030; J7050; Q9967

== ENCOUNTER → 2016-07-24 | Outpatient (CLI) | payer BC ==
[~2016-07-24] MED LIST changes: +BUPR150T3 PO; -DIPH25CA84 PO; +IOHEXOL 300 MG/ML 100ml INJECTION ONE; +METH500T6 PO; +METO-230 PO; +NORMAL SALINE 100 ML ONE; +PANT40TA PO; +SALINE FLUSH 10ml SYRINGE ONE; +SUCR1TAB PO; +TRAM50TA4 PO
--- NOTE | 2016-07-24 12:29 | DI ---
Indication: ITS.REASON: R59.1 Generalized enlarged lymph nodes; N50.9 Disorder of male ge PROCEDURE: CT NECK and chest W/CONTRAST: Encounter: Initial Comparison: CT abdomen and pelvis dated July 20, 2016 Technique: Axial CT images were performed through the neck and chest with intravenous contrast. Coronal and sagittal two-dimensional reformats Automated Exposure Control and Iterative Reconstruction dose reducing techniques were utilized. Contrast: Omnipaque 300 75 mL Findings: Neck: The thyroid gland is normal. No adenopathy or mass in the neck. Parotid and submandibular glands are normal. No mucosal based mass lesions. Great vessels appear normal. Bony structures are within normal limits. Chest: There is a slightly irregular opacity in the left lower lobe at the costophrenic angle seen on axial image #46 measuring 1 cm in size. The remaining lung clement are clear. No pleural effusion or pneumothorax. The central airways are patent. No axillary or mediastinal adenopathy. Calcified granulomas in the left superior mediastinum. Heart size is normal. No pericardial effusion. Small hiatal hernia. Upper abdominal mass and lymphadenopathy as described in more detail on the comparison CT report. Bone windows show probable bone island in the left aspect of T11 posteriorly. No worrisome lytic or blastic osseous lesions identified. Age-appropriate mild degenerative change in the thoracic spine. Impression: No definite evidence of metastatic disease in the neck or chest. Small area of probable atelectasis or scarring in the left costophrenic angle. Continued attention to this area is recommended on follow-up exams. .
--- NOTE | 2016-07-24 12:45 | DI ---
Indication: ITS.REASON: R59.1 Generalized enlarged lymph nodes; N50.9 Disorder of male ge PROCEDURE: US TESTICULAR: Encounter: Initial Comparison: Testicular ultrasound dated September 08, 2015 FINDINGS: Both testicles are present in expected location. The testicles demonstrate a homogenous echotexture without intratesticular mass. The right testicle measures 5.3 x 2.8 x 2.9 cm, and the left testicle measures 5 x 2.3 x 2.7 cm. Small 4 x 5 mm anechoic cyst in the tunica albuginea region of the right testicle is stable from the comparison. No internal Doppler flow or true testicular mass. Color Doppler imaging demonstrates symmetric, arterial flow throughout both testicles. Normal pulsed Doppler arterial and venous waveforms were obtained from each testicle. Cystic space associated with the left epididymal tail measuring 7 x 6 x 7 mm appears benign and could represent a small spermatocele. Right epididymis appears normal. Small left varicocele again noted. IMPRESSION: No testicular mass identified. .
[2016-07-24 12:49] LABS: BASOPHILS # (AUTO) 0.1 T/MM3 (0-0.2); BASOPHILS % (AUTO) 1.6 % (0-2); EOSINOPHILS # (AUTO) 0.2 T/MM3 (0-0.5); EOSINOPHILS % (AUTO) 3.9 % (0-4); HCT - HEMATOCRIT 41.5 % (41-53); HGB - HEMOGLOBIN 13.3 GM/DL (13.5-17.5); IMMATURE GRANULOCYTE # (AUTO) 0.02 T/MM3 (0.00-0.03); IMMATURE GRANULOCYTE % (AUTO) 0.4 % (0.0-0.5); LYMPHOCYTES # (AUTO) 1.1 T/MM3 (1-4.8); LYMPHOCYTES % (AUTO) 22.5 % (23-45); MEAN CORPUSCULAR HGB 27.3 UUG (26-34); MEAN PLATELET VOLUME 8.9 UM3 (9.4-12.4); MONOCYTES # (AUTO) 0.6 T/MM3 (0-0.8); MONOCYTES % (AUTO) 11.5 % (0-9.0); NEUTROPHILS #(AUTO)-ABSOLUTE 2.9 T/MM3 (1.8-7.7); NEUTROPHILS % (AUTO) 60.1 % (33-66); RED BLOOD COUNT 4.88 M/MM3 (4.50-5.90); WBC - WHITE BLOOD COUNT 4.9 T/MM3 (4.5-11.0)
[2016-07-24 13:01] LABS: ALBUMIN/GLOBULIN RATIO 1.4 RATIO (1.1-2.2); ALKALINE PHOSPHATASE 124 U/L (38-126); ALT (SGPT) 72 U/L (21-72); ANION GAP 12 MEQ/L (5-15); AST (SGOT) 55 U/L (17-59); BUN/CREATININE RATIO 8 RATIO (6-26); CALCIUM 9.2 MG/DL (8.4-10.2); CHLORIDE 101 MEQ/L (98-107); CO2 - CARBON DIOXIDE 32 MEQ/L (22-30); GLOMERULAR FILTRATION RATE 77; GLUCOSE 94 MG/DL (75-110); LDH 1193 U/L (313-618); POTASSIUM 4.2 MEQ/L (3.6-5); SODIUM 145 MEQ/L (134-144); TOTAL PROTEIN 6.8 G/DL (6.3-8.2)
[2016-07-24 13:17] LABS: HCG-QUANTITATIVE < 2.39 mIU/mL
[2016-07-24 14:50] LABS: IGA - IMMUNOGLOBULIN A 98.81 MG/DL (70-400); IGM - IMMUNOGLOBULIN M 94.45 MG/DL (40-230)
== END ==
LOC: IMA 11:27
PROVIDERS: ATTEND Internal Medicine Hematology & Oncology
DX: R59.1 Generalized enlarged lymph nodes (principal); I86.1 Scrotal varices; R91.8 Other nonspecific abnormal finding of lung field; N50.9 Disorder of male genital organs, unspecified
CPT/HCPCS: 36415; 70491; 71260; 76870; 80053; 82105; 82784; 83615; 83883; 84155; 84165; 84702; 85025; 86334; J7050; Q9967

== ENCOUNTER 2016-07-25 11:04 | Outpatient (CLI) | payer BC ==
[~2016-07-25] VITALS: Ht 175.3 cm; Wt 72.6 kg
[2016-07-25] VITALS (15 sets, daily range): BP systolic 111–146; BP diastolic 65–77; PULSE 69–87; RESP 16–37; TEMP 97–97.8; O2SAT 93–97; Ht 175.3 cm; Wt 72.6 kg
[~2016-07-25 11:04] MED LIST changes: -BUPR300T59 PO; -IOHEXOL 300 MG/ML 100ml INJECTION ONE; -METH500T6 PO; -NORMAL SALINE 100 ML ONE; -PANT40TA PO; -SALINE FLUSH 10ml SYRINGE ONE; -TRAM50TA4 PO
--- NOTE | 2016-07-25 11:12 | NUR ---
ARRIVED TO FLOOR THE PT ARRIVED TO THE FLOOR AT THIS TIME, PT ALERT AND ORIENTED X3. VITAL SIGNS STABLE ON RA. PT CHANGED INTO GOWNS AND ADMISSION PROCESS STARTED. WILL CONTINUE TO MONITOR.
[2016-07-25] MEDS ORDERED: PANT40TA PO (11:38)
[2016-07-25] MEDS ORDERED: TRAM50TA4 PO (11:56)
[2016-07-25 11:59] LABS: INR 1.17 (0.76-1.04); PROTHROMBIN TIME 12.8 SEC (9.31-12.49)
--- NOTE | 2016-07-25 12:18 | NUR ---
CM CM IN TO VISIT WITH PT. HE IS ALERT AND ORIENTED. HE PLANS TO DC HOME. HE DENIES DC NEEDS. HE IS GIVEN CM CONTACT INFORMATION. Addendum: 07/25/16 at 1219 by BRENDA GRAVES RN Amended: Links added.
[2016-07-25] MEDS ORDERED: LIDOCAINE 1% (10mg/ml) 5ml VIAL ONE (12:45)
--- NOTE | 2016-07-25 12:54 | NUR ---
LEFT FLOOR PT LEFT THE FLOOR WITH IMAGING STAFF AT THIS TIME VIA WHEELCHAIR. NO CONCERNS NOTED. MEDICATION LIST SENT WITH STAFF.
--- NOTE | 2016-07-25 13:50 | NUR ---
BACK PT BACK IN ROOM AT THIS TIME. PT ARRIVED VIA WHEELCHAIR. PT SETTLED IN BED AT THIS TIME.
[2016-07-25] MEDS ORDERED: ACETAMINOPHEN 325 MG TABLET PO PRN (14:00)
--- NOTE | 2016-07-25 15:34 | DI ---
Indication:ITS.REASON: N50.9, R59.1 Ordering physician: Pradip Bolden M.D. Procedure:US BIOPSY ABD/RETROPERITONEAL MESENTERIC LYMPH NODE BIOPSY: After discussing the details of the procedure, including the risks, the patient wished to proceed. Informed consent was obtained. A preprocedural timeout was performed to confirm the correct patient and procedure. Using aseptic technique, local lidocaine anesthetic, and ultrasound guidance, four passes using an 18-gauge 33mm throw core Biopince biopsy needle were performed to obtain tissue samples of a mesenteric mass in the anterior aspect of the left upper quadrant of the abdomen. The tissue samples were placed in formalin and Segun's solution and sent to lab for the requested studies. There was no complication. The patient tolerated this procedure well. Following this, the patient was taken back to his recovery room to await discharge. Impression: Technically successful ultrasound guided core biopsy of a left upper quadrant mesenteric mass. Dash Armendariz RPA/EDWARDA performed this under my personal supervision. .
--- NOTE | 2016-07-25 16:18 | NUR ---
DISMISSAL UPDATE PT GIVEN DISMISSAL INSTRUCTIONS, HE STATES UNDERSTANDING. PT HAD JUST FINISHED HIS MEAL, DENIED ANY COMPLAINTS. PT WAS WALKED TO FRONT DOOR WHERE HE WAS PICKED UP BY FRIEND.
== END 2016-07-25 16:31 | disposition home or self-care (01) ==
LOC: IMA 11:04 → SRG 11:04 → IMA 16:31
PROVIDERS: ATTEND Radiology Diagnostic Radiology
DX: C83.33 Diffuse large B-cell lymphoma, intra-abdominal lymph nodes (principal); N50.9 Disorder of male genital organs, unspecified; R59.1 Generalized enlarged lymph nodes
CPT/HCPCS: 36415; 49180; 85049; 85610

== ENCOUNTER → 2016-07-27 | Outpatient (CLI) | payer BC ==
[~2016-07-27] MED LIST changes: +PANT40TA PO; -PANT40TA25 PO; +TRAM50TA4 PO
[2016-07-27 13:19] LABS: BASOPHILS # (AUTO) 0.1 T/MM3 (0-0.2); BASOPHILS % (AUTO) 1.3 % (0-2); EOSINOPHILS # (AUTO) 0.2 T/MM3 (0-0.5); EOSINOPHILS % (AUTO) 4.5 % (0-4); HCT - HEMATOCRIT 43.9 % (41-53); HGB - HEMOGLOBIN 14.1 GM/DL (13.5-17.5); IMMATURE GRANULOCYTE # (AUTO) 0.01 T/MM3 (0.00-0.03); IMMATURE GRANULOCYTE % (AUTO) 0.2 % (0.0-0.5); LYMPHOCYTES % (AUTO) 22.7 % (23-45); MEAN CORPUSCULAR HGB 26.8 UUG (26-34); MEAN CORPUSCULAR HGB CONC(MCHC 32.1 GM/DL (31-37); MEAN CORPUSCULAR VOLUME 83.3 UM3 (80-100); MEAN PLATELET VOLUME 8.7 UM3 (9.4-12.4); MONOCYTES # (AUTO) 0.5 T/MM3 (0-0.8); NEUTROPHILS #(AUTO)-ABSOLUTE 2.7 T/MM3 (1.8-7.7); NEUTROPHILS % (AUTO) 59.3 % (33-66); RED BLOOD COUNT 5.27 M/MM3 (4.50-5.90); WBC - WHITE BLOOD COUNT 4.5 T/MM3 (4.5-11.0)
[2016-07-27 13:29] LABS: ALBUMIN 4.3 G/DL (3.5-5.0); ALBUMIN/GLOBULIN RATIO 1.5 RATIO (1.1-2.2); ALKALINE PHOSPHATASE 128 U/L (38-126); ALT (SGPT) 93 U/L (21-72); ANION GAP 12 MEQ/L (5-15); AST (SGOT) 61 U/L (17-59); BUN/CREATININE RATIO 11 RATIO (6-26); CALCIUM 9.8 MG/DL (8.4-10.2); CHLORIDE 104 MEQ/L (98-107); CO2 - CARBON DIOXIDE 28 MEQ/L (22-30); GLOMERULAR FILTRATION RATE 77; GLUCOSE 105 MG/DL (75-110); LDH 1225 U/L (313-618); MAGNESIUM 2.2 MG/DL (1.6-2.3); POTASSIUM 4.4 MEQ/L (3.6-5); SODIUM 144 MEQ/L (134-144); TOTAL PROTEIN 7.2 G/DL (6.3-8.2); URIC ACID 7.6 MG/DL (3.5-8.5)
== END ==
LOC: LAB 12:55
PROVIDERS: ATTEND Internal Medicine Hematology & Oncology
DX: C83.33 Diffuse large B-cell lymphoma, intra-abdominal lymph nodes (principal); Z41.8 Encounter for other procedures for purposes other than remedying health state
CPT/HCPCS: 36415; 80053; 83615; 83735; 84550; 85025; 86703; 86705; 87340

== ENCOUNTER 2016-07-31 06:04 | Day surgery (SDC) | payer BC ==
[~2016-07-31] VITALS: Ht 175.3 cm; Wt 73.8 kg
[2016-07-31] VITALS (9 sets, daily range): BP systolic 99–126; BP diastolic 55–70; PULSE 87–96; RESP 14–18; TEMP 96.8–97.8; O2SAT 93–98; Ht 175.3 cm; Wt 73.8 kg
[~2016-07-31 06:04] MED LIST changes: -BUPIVACAINE 0.5% (5mg/ml) 30ml INJ SDV ONE; -LIDOCAINE 1% (10mg/ml) 5ml VIAL ONE; -METH500T6 PO; -PANT40TA25 PO
--- OUTSIDE RECORDS SUMMARY | 2016-07-31 06:10 | XMS REPORT | Continuity of Care Document ---
Author Author [facility] Organization [facility] Address Unknown Phone Unavailable Support Name Relationship Address Phone BONNY MEDEIROS MD Caregiver [facility] [address] [place] [address] [address] [place] [address] GLENIS BRIONES DO Caregiver [facility] [address] [place] [address] [address] [place] [phone] JHON RYAN Next Of Kin [address] [place] [address] Insurance Providers Payer Name Policy Number Subscriber Name Relationship [facility] [id number] Emma Ryan 16 Self Advance Directives Directive Response Recorded Date/Time Ordered Resuscitation Status Full Code, unverified 12/01/13 3:02pm Problems No known problems or medical conditions. Medications Medication Dose Route Sig Days/Qty Instructions Order Date Discontinued Date Status Paroxetine Hcl 30 Mg PO DAILY 04/30/08 05/06/12 Discontinued [place] Carbonate 300 Mg PO 2 TAB PM [...] 30 Qty 12/01/13 Active Fluticasone Propionate 2 [place] EA NOSTRIL DAILY 12/01/13 Active Diphenhydramine HCl [...] F (96.8 - 99.1) Temperature (Calculated Celsius) 36.19651 degrees C (36.0 - 37.3) Temperature Source [...] September 27, 2013 8:17am 86.4 N 66-159 [place] Level April 24, 2008 9:47am 0.4 MMOL/L [...] 17, 2011 6:54am Negative - Urine Specific [place] February 17, 2011 6:54am 1.005 L - [...] 27, 2013 12:08pm LAB TEST FORM REQUEST [id number] - EKG April 23, 2008 1:05pm Complete [...] potentially toxic. Vitamin D, 25-Hydroxy performed at [facility] Reference Lab, [facility] [place] [address] Associate Professor Of Biblical Studies Shandra Palm MD 25-Hydroxy Vitamin D2 September 27, 2013 8:17am 9 ng/mL - 25-Hydroxy Vitamin D3 September 27, 2013 8:17am 36 ng/mL - Urine Microscopic Not Indicated February 17, 2011 6:54am Not indicated - Procedures Procedure Status Date Provider(s) Esophagogastroduodenoscopy (EGD) with closed biopsy completed 12/02/13 GLENIS BRIONES DO Encounters Encounter Location Date/Time Registered Clinic [facility] 09/27/13 8:12am
--- OUTSIDE RECORDS SUMMARY | 2016-07-31 06:10 | XMS REPORT | Continuity of Care Document ---
Author Author [facility] Organization [facility] Address Unknown Phone Unavailable Support Name Relationship Address Phone IRENA GONZALEZ MD Caregiver [address] [facility] [address] Unavailable GLENIS BRIONES DO Caregiver [address] [place] [address] Unavailable JHON RYAN Next Of Kin [address] [place], [place] [id number] Insurance Providers Guarantor Emma Ryan Address [address] [place] [address] Email [email or web address] Policy Number [id number] Subscriber's Name Emma Ryan Relationship [id number] Self Group Number [id number] Advance Directives Directive Response Recorded Date/Time Ordered Resuscitation Status Full Code 07/25/16 8:27am Resuscitation Documents on File Yes 07/25/16 11:25am DPOA for Healthcare Only No 07/25/16 11:25am Living Will No 07/25/16 11:25am Problems Past Problems Medical Problem Onset Date Abdominal mass, left upper quadrant Unknown Abdominal mass, right lower quadrant Unknown Medications Current Home Medications Medication Dose Units Route Directions Days Qty Instructions Start Date Bupropion Hcl (Wellbutrin Sr) 150 Mg Tablet 3 Tab Oral Daily Lamotrigine (Lamotrigine Er) 300 Mg Tab.er.24 1 Tab Oral Daily Loratadine/Pseudoephedrine (Claritin-D 24 Hour Tablet) 1 Each Tab.er.24h 1 Tab Oral Daily 12/01/13 Methocarbamol (Robaxin-750) 750 Mg Tablet 750 Mg Oral Every 4 Hours as needed 05/06/12 Metoclopramide Hcl (Reglan) 10 Mg Tablet 10 Mg Oral Four Times Daily as needed for N/V/Cramps 30 Tablet 07/20/16 Multivitamins (Multivitamin) 1 Tab Tablet 1 Tab Oral Daily 02/05/ 13 [place]-3 Fatty Acids/Fish Oil (Fish Oil Pearls Softgel) 1 Each Capsule 1 Cap Oral Daily 01/11/15 Pantoprazole Sodium (Protonix) 40 Mg Tablet.dr 40 Mg Oral Twice A Day for Acid Reflux Take 1 tablet, by mouth, 2 times a day before Breakfast and Dinner. 07/25/16 Paroxetine Hcl (Paxil) 20 Mg Tablet 20 Mg Oral Daily 07/12/16 Pravastatin Sodium (Pravachol) 20 Mg Tablet 20 Mg Oral Bedtime Take 1 tablet, by mouth, 1 times daily (at bedtime). 12/01/13 Propranolol Hcl 20 Mg Tablet 1 Tab Oral Daily 07/12/16 Sucralfate 1 Gm Tablet 1 Tab Oral Bedtime 30 07/24/16 Tamsulosin Hcl (Flomax) 0.4 Mg Capsule 0.4 Mg Oral Bedtime Take 1 capsule, by mouth, one time a day at BEDTIME. 07/12/16 Tramadol Hcl 50 Mg Tablet 50 Mg Oral Q6h/0300,0900,1500,2100 Take 1 tablet, by mouth, every 6 hours. 07/25/16 Past Home Medications Medication Directions Ordered Status Bupropion Hcl (Bupropion Xl) 300 Mg Tab.er.24h, 300 Mg Oral Daily 12/01/13 Discontinued Fish Oil , 12/01/13 Discontinued Ibuprofen 200 Mg Tablet, 200 Mg Oral As Needed 04/30/08 Discontinued Lamotrigine (Lamotrigine Er) 25 Mg Tab.er.24, 1 Tab Oral Daily 12/01/13 Discontinued Lanotrigin , Bedtime 02/06/10 Discontinued [place] Carbonate (Lithobid) 300 Mg Tablet.sa, 300 Mg [...] Date/Time Onset Date Status Reason for Hospitalization CT BIOPSY 07/25/2016 3:18pm Not Applicable Not Applicable Chewing Tobacco Status No 05/06/2012 3:43pm Not Applicable Not Applicable Hx Substance Use No 07/24/2016 5:21pm Not Applicable Not Applicable Hx Alcohol Use No 07/24/2016 5:21pm Not Applicable Not Applicable Has the pt used tobacco in the last 12 months No 07/25/2016 11:27am Not Applicable Not Applicable Query Response Start Date Stop Date Smoking Status Former smoker Hospital Discharge Instructions Instructions: Care Instructions: I was in the hospital because (patient own words): "biopsy out of my abdomen" Discharge Diet: TOLERATED Discharge Activity: -RESTART ASA/BLOOD THINNERS STOPPED FOR THIS PROCEDURE, AT THE NEXT SCHEDULED DOSE. -DO NOT EXERCISE OR DO HEAVY LIFTING FOR 1 WEEK. -MAY RETURN TO WORK NEXT DAY. MAY DRIVE STARTING SAME DAY. -MAY SHOWER/ BATHE STARTING NEXT DAY. Follow Up Appointments: NEEDED WITH PROVIDERS Pending Lab / Results: No Pending Lab Expected Signs/Symptoms: N/A Notify Physician If: ANY CONCERNS RELATED TO CARE. During Business Hours:: Please call the physician's office After Business Hours:: Please call [phone] and have the machine operator helper page the physician. Pain Management/Treatment: TAKE PO PAIN MEDICATION AT NEEDED. Pain Scale Utilized to Educate Patient: 0-10 Pain Scale Wound/Incision Care: N/A Condition at time of discharge: Good Plan of Care Discharge Date 07/25/16 4:31pm Instructions/Education Provided [facility] Ultrasound Guided Biopsy Prescriptions See Medication Section Functional Status Query Response Date Recorded Mobility Status Ambulatory July 25, 2016 11:29am Assistive Devices None July 25, 2016 11:29am Activity Limitations None July 25, 2016 11:29am Feeding Ability Independent July 25, 2016 11:29am Toileting Ability Independent July 25, 2016 11:29am Grooming Ability Independent July 25, 2016 11:29am Dressing Ability Independent July 25, 2016 11:29am Driving Ability Independent July 25, 2016 11:29am Housework Ability Independent July 25, 2016 11:29am Meal Preparation Ability Independent July 25, 2016 11:29am Stair Climbing Ability Independent July 25, 2016 11:29am Ability to complete ADL's impeded by No change July 25, 2016 11:29am Cognitive/Perceptual Impairments None July 25, 2016 11:29am Allergies, Adverse Reactions, Alerts Allergen Type Severity Reaction Status Last Updated No Known Drug Allergies Allergy Unknown Active 07/25/16 Immunizations Query Response on File Recorded Date/Time Hx Influenza Vaccination No 07/25/16 11:27am Hx Pneumococcal Vaccination No 07/25/16 11:27am Hx Influenza Vaccination No 07/25/16 11:27am Vital Signs Acute Vital Signs Vital Response Date/Time Temperature (Fahrenheit) 97.0 deg F (96.8 - 99.1) 07/25/2016 1:50pm Temperature (Calculated Celsius) 36.69486 degrees C (36.0 - 37.3) 07/25/2016 1:50pm Temperature Source Oral 07/25/2016 1:50pm Pulse Rate (adult) 87 bpm (60 - 100) 07/25/2016 4:05pm Respiratory Rate 16 breaths/min (10 - 20) 07/25/2016 4:05pm O2 Sat by Pulse Oximetry 94 % (90 - 100) 07/25/2016 4:05pm Oxygen Delivery Method Room Air 07/25/2016 4:05pm Oxygen Delivery Method Room Air 07/25/2016 1:38pm Oxygen Flow Rate 2.00 L/min 07/13/2016 7:24am Blood Pressure 125/72 mm Hg 07/25/2016 4:05pm Blood Pressure Source Automatic Cuff 07/25/2016 4:05pm Height (Feet) 5 feet 07/25/2016 11:22am Height (Inches) 9.00 inches 07/25/2016 11:22am Weight (Kilograms) 72.600 kg 07/25/2016 11:22am Body Mass Index (BMI) 23.6 07/25/2016 11:22am Results Laboratory Results Test Name Result Units Flags Reference Collection Date/Time Result Date/ Time Comments Lipase 162 U/L 23-300 07/20/2016 3:36am 07/20/2016 3:56am White Blood Count 4.9 T/MM3 4.5-11.0 07/24/2016 12:40pm 07/24/2016 12: 49pm Red Blood Count 4.88 M/MM3 4.50-5.90 07/24/2016 12:40pm 07/24/2016 12: 49pm Hemoglobin 13.3 GM/DL L 13.5-17.5 07/24/2016 12:40pm 07/24/2016 12:49pm Hematocrit 41.5 % 41-53 07/24/2016 12:40pm 07/24/2016 12:49pm Mean Corpuscular Volume 85.0 UM3 80-100 07/24/2016 12:40pm 07/24/2016 12:49pm Mean Corpuscular Hemoglobin 27.3 UUG 26-34 07/24/2016 12:40pm 2016 12:49pm Mean Corpuscular Hemoglobin Concent 32.0 GM/DL 31-37 07/24/2016 12:40pm 07/24/2016 12:49pm RDW Standard Deviation 40.5 FL 36.9-50.2 07/24/2016 12:40pm 07/24/2016 12:49pm Mean Platelet Volume 8.9 UM3 L 9.4-12.4 07/24/2016 12:40pm 07/24/2016 12 :49pm Neutrophils (%) (Auto) 60.1 % 33-66 07/24/2016 12:40pm 07/24/2016 12: 49pm Lymphocytes (%) (Auto) 22.5 % L 23-45 07/24/2016 12:40pm 07/24/2016 12: 49pm Monocytes (%) (Auto) 11.5 % H 0-9.0 07/24/2016 12:40pm 07/24/2016 12: 49pm Eosinophils (%) (Auto) 3.9 % 0-4 07/24/2016 12:40pm 07/24/2016 12:49pm Basophils (%) (Auto) 1.6 % 0-2 07/24/2016 12:40pm 07/24/2016 12:49pm Immature Granulocyte % (Auto) 0.4 % 0.0-0.5 07/24/2016 12:40pm 2016 12:49pm Absolute Neutrophils (auto) 2.9 T/MM3 1.8-7.7 07/24/2016 12:40pm 2016 12:49pm Absolute Lymphocytes (auto) 1.1 T/MM3 1-4.8 07/24/2016 12:40pm 2016 12:49pm Absolute Monocytes (auto) 0.6 T/MM3 0-0.8 07/24/2016 12:40pm 2016 12:49pm Absolute Eosinophils (auto) 0.2 T/MM3 0-0.5 07/24/2016 12:40pm 2016 12:49pm Absolute Basophils (auto) 0.1 T/MM3 0-0.2 07/24/2016 12:40pm 2016 12:49pm Absolute Immature Granulocyte (auto 0.02 T/MM3 0.00-0.03 07/24/2016 12: 40pm 07/24/2016 12:49pm Icterus Index < 2 0-7 07/24/2016 12:40pm 07/24/2016 12:55pm Chemistry Specimen Hemolysis < 15 0-25 07/24/2016 12:40pm 07/24/2016 12:55pm 0-25: Specimen Exhibited No Hemolysis. Turbidity < 20 0-20 07/24/2016 12:40pm 07/24/2016 12:55pm Sodium Level 145 MEQ/L H 134-144 07/24/2016 12:40pm 07/24/2016 1:01pm Potassium Level 4.2 MEQ/L 3.6-5 07/24/2016 12:40pm 07/24/2016 1:01pm Chloride Level 101 MEQ/L 98-107 07/24/2016 12:40pm 07/24/2016 1:01pm Carbon Dioxide Level 32 MEQ/L H 22-30 07/24/2016 12:40pm 07/24/2016 1: 01pm Anion Gap 12 MEQ/L 5-15 07/24/2016 12:40pm 07/24/2016 1:01pm Blood Urea Nitrogen 8.0 MG/DL L 9-07/24/2016 12:40pm 07/24/2016 1: 01pm Creatinine 1.0 MG/DL 0.8-1.5 07/24/2016 12:40pm 07/24/2016 1:01pm BUN/Creatinine Ratio 8 RATIO 6-07/24/2016 12:40pm 07/24/2016 1:01pm Glomerular Filtration Rate Calc 77 07/24/2016 12:40pm 07/24/2016 1: 01pm Glucose Level 94 MG/DL 75-110 07/24/2016 12:40pm 07/24/2016 1:01pm Calculated Osmolality 277 MOSM/KG 261-280 07/24/2016 12:40pm 2016 1:01pm Calcium Level 9.2 MG/DL 8.4-10.2 07/24/2016 12:40pm 07/24/2016 1:01pm Total Bilirubin 0.60 MG/DL 0.20-1.30 07/24/2016 12:40pm 07/24/2016 1: 01pm Alkaline Phosphatase 124 U/L 38-126 07/24/2016 12:40pm 07/24/2016 1: 01pm Total Protein 6.8 G/DL 6.3-8.2 07/24/2016 12:40pm 07/24/2016 1:01pm Albumin 4.0 G/DL 3.5-5.0 07/24/2016 12:40pm 07/24/2016 1:01pm Globulin 2.8 G/DL 2.4-3.6 07/24/2016 12:40pm 07/24/2016 1:01pm Albumin/Globulin Ratio 1.4 RATIO 1.1-2.2 07/24/2016 12:40pm 07/24/2016 1:01pm Aspartate Amino Transf (AST/SGOT) 55 U/L 17-59 07/24/2016 12:40pm 07/24 1:01pm Alanine Aminotransferase (ALT/SGPT) 72 U/L 21-72 07/24/2016 12:40pm 1:01pm Lactate Dehydrogenase 1193 U/L H 313-618 07/24/2016 12:40pm 07/24/2016 1 :01pm Immunoglobulin G 782.30 MG/DL 700-1600 07/24/2016 12:40pm 07/24/2016 2: 50pm Immunoglobulin A 98.81 MG/DL 70-400 07/24/2016 12:40pm 07/24/2016 2: 50pm Immunoglobulin M 94.45 MG/DL 40-230 07/24/2016 12:40pm 07/24/2016 2: 50pm Alpha Fetoprotein 2.9 IU/mL 0.0-8.8 07/24/2016 12:40pm 07/24/2016 10: 49pm Alpha-Fetoprotein performed at [facility] Reference [facility], [facility], [place] [address] Tying Machine Operator Dacia Hurtado DO Serum Total Protein 6.3 g/dL 6.1-7.7 07/24/2016 12:40pm 07/24/2016 10: 26pm Immunoelectrophoresis, no IMQ performed at [facility], [address] [place] [id number] Tying Machine Operator Dacia Hurtado DO Albumin (PEP) 3.7 g/dL 2.6-4.5 07/24/2016 12:40pm 07/25/2016 12:51pm Axibe-7-Rfvbexcys 0.4 g/dL 0.3-0.5 07/24/2016 12:40pm 07/25/2016 12: 51pm Rkhzk-5-Orokwsbwu 1.0 g/dL 0.6-1.2 07/24/2016 12:40pm 07/25/2016 12: 51pm Ypyq-2-Xhjxmusk 0.3 g/dL L 0.4-0.6 07/24/2016 12:40pm 07/25/2016 12: 51pm Ydba-1-Xhxtvcuj 0.3 g/dL 0.2-0.5 07/24/2016 12:40pm 07/25/2016 12:51pm Gamma Globulins 0.7 g/dL 0.4-1.7 07/24/2016 12:40pm 07/25/2016 12:51pm Albumin % (PEP) 58.2 % 48.7-61.8 07/24/2016 12:40pm 07/25/2016 12:51pm Fngve-6-Bmslzegbp (%) 6.4 % 3.4-8.3 07/24/2016 12:40pm 07/25/2016 12: 51pm Bboxp-1-Msjrclbqq (%) 16.4 % 8.4-17.5 07/24/2016 12:40pm 07/25/2016 12: 51pm Jkwc-4-Iikvnlei (%) 4.5 % L 5.4-8.9 07/24/2016 12:40pm 07/25/2016 12: 51pm Smap-3-Onpagrdw (%) 3.9 % 3.8-7.7 07/24/2016 12:40pm 07/25/2016 12: 51pm Gamma Globulins (%) 10.6 % 8.1-23.0 07/24/2016 12:40pm 07/25/2016 12: 51pm Immunoelectrophoresis, no IMQ performed at [facility], [address] [place] [id number] Tying Machine Operator Dacia Hurtado DO Protein Electrophoresis Comment - 07/24/2016 12:40pm 07/25/2016 12: 51pm Decreased beta-1 fraction. No monoclonal peaks or restricted areas observed by immunofixation. Platelet Count 245 T/MM3 130-400 07/25/2016 11:46am 07/25/2016 11:55am Prothromb Time International Ratio 1.17 H 0.76-1.04 07/25/2016 11:46am 07/25/2016 11:59am THERAPUTIC RANGE=2.00-3.00 FOR ANTI-THROMBOSIS THERAPUTIC RANGE=2.50-3.50 FOR IMPLANTED VALVE Name: EMMA RYAN Unit #: [id number] : 1960 Sex: M Admit Date: Loc / Svc: SRG Discharge Date: DIAGNOSTIC IMAGING REPORT Report #: [id number] [place], [place] Indication:ITS.REASON: N50.9, R59.1 Ordering physician: Pradip Bolden M.D. Procedure:US BIOPSY ABD/RETROPERITONEAL MESENTERIC LYMPH NODE BIOPSY: After discussing the details of the procedure, including the risks, the patient wished to proceed. Informed consent was obtained. A preprocedural timeout was performed to confirm the correct patient and procedure. Using aseptic technique, local lidocaine anesthetic, and ultrasound guidance, four passes using an 18-gauge 33mm throw core Biopince biopsy needle were performed to obtain tissue samples of a mesenteric mass in the anterior aspect of the left upper quadrant of the abdomen. The tissue samples were placed in formalin and Segun's solution and sent to lab for the requested studies. There was no complication. The patient tolerated this procedure well. Following this, the patient was taken back to his recovery room to await discharge. Impression: Technically successful ultrasound guided core biopsy of a left upper quadrant mesenteric mass. Irena Armendariz RPA/EDWARDA performed this under my personal supervision. . Procedures Procedure Status Date Provider(s) Egd biopsy single/multiple Completed 07/13/16 GLENIS BRIONES DO 378789"INJECTION, MIDAZOLAM HYDROCHLORIDE, PER 1 MG" Completed 07/13/16"INJECTION, FENTANYL CITRATE, 0.1 MG" Completed 07/13/16"RINGERS LACTATE INFUSION, UP TO 1000 CC" Completed 07/13/16 Ct abd & pelv w/contrast Completed 07/20/16 Comprehen metabolic panel Completed 07/20/16 Assay of lipase Completed 07/20/16 Complete cbc w/auto diff wbc Completed 07/20/16 Hydrate iv infusion add-on Completed 07/20/16 Ther/proph/diag inj iv push Completed 07/20/16 Tx/pro/dx inj new drug addon Completed 07/20/16 Emergency dept visit Completed 07/20/16193406"INJECTION, KETOROLAC TROMETHAMINE, PER 15 MG" Completed 07/20/16"INJECTION, METOCLOPRAMIDE HCL, UP TO 10 MG" Completed 07/20/16"INFUSION, NORMAL SALINE SOLUTION , 1000 CC" Completed 07/20/16754144"INFUSION, NORMAL SALINE SOLUTION , 250 CC" Completed 07/20/16145514"LOW OSMOLAR CONTRAST MATERIAL, 300-399 MG/ML IODINE C Completed Encounters Encounter Location Arrival/Admit Date Discharge/Depart Date Attending Provider Departed [facility] 07/25/16 11:04am 07/25/16 4:31pm IRENA GONZALEZ MD [facility] 07/24/16 11:27am PRADIP BOLDEN Departed Emergency Room [facility] 07/20/16 2:41am 07/20/16 6: 03am GLENIS FORMAN MD Departed [facility] Day Care [facility] 07/13/16 6:07am 07/13/16 9: 15am GLENIS BRIONES DO
--- OUTSIDE RECORDS SUMMARY | 2016-07-31 06:10 | XMS REPORT | Continuity of Care Document ---
Author Author [facility] Organization [facility] Address Unknown Phone Unavailable Support Name Relationship Address Phone GLENIS FORMAN MD Caregiver [address] [address] Unavailable GLENIS BRIONES DO Caregiver [address] [place] [address] Unavailable JHON RYAN Next Of Kin [address] [place], [place] [id number] Insurance Providers Guarantor Emma Ryan Address [address] [place] [address] Email [email or web address] [facility] Policy Number [id number] Subscriber's Name Emma Ryan Relationship 18 Self Group Number [id number] Chief Complaint and Reason for Visit Chief Complaint Abdominal Pain Reason for Visit [id number] Problems Past Problems Medical Problem Onset Date Abdominal mass, left upper quadrant Unknown Abdominal mass, right lower quadrant Unknown Medications Current Home Medications Medication Dose Units Route Directions Days Qty Instructions Start Date Bupropion Hcl (Bupropion Xl) 300 Mg Tab.er.24h 300 Mg Oral Daily 12/01/13 Lamotrigine (Lamotrigine Er) 300 Mg Tab.er.24 1 [...] 1 Tab Tablet 1 Tab Oral Daily [place]-3 Fatty Acids/Fish Oil (Fish Oil Pearls Softgel) [...] 12/01/13 Discontinued Lanotrigin , Bedtime 02/06/10 Discontinued [place] Carbonate (Lithobid) 300 Mg Tablet.sa, 300 Mg Oral 2 Tab Pm 04/30/08 Discontinued Loratadine (Claritin) 10 Mg Tablet, 10 Mg Oral As Needed 02/06/10 Discontinued Multivitamins (Multivitamin) 1 Tab Tablet, 1 Tab Oral As Needed 04/30/08 Discontinued Omeprazole (Prilosec) 20 Mg Capsule., 20 Mg Oral As Needed 02/06/10 Discontinued Paroxetine Hcl (Paxil) 30 Mg Tablet, 30 Mg Oral Daily 04/30/08 Discontinued Pravastatin Sodium 20 Mg Tablet, 20 Mg Oral 03/27/11 Discontinued Pravastatin Sodium 20 Mg Tablet, 20 Mg Oral Daily 04/24/11 Discontinued Social History Social History Problem Response Recorded Date/Time Onset Date Status Chewing Tobacco Status No 05/06/2012 3:43pm Not Applicable Not Applicable Hx Substance Use No 07/20/2016 3:47am Not Applicable Not Applicable Hx Alcohol Use No 07/20/2016 3:47am Not Applicable Not Applicable Has the pt used tobacco in the last 12 months No 07/13/2016 6:32am Not Applicable Not Applicable Query Response Start Date Stop Date Smoking Status Never smoker Hospital Discharge Instructions No hospital discharge instructions. Plan of Care Discharge Date 07/20/16 6:03am Disposition 01 DISCHARGED HOME, SELF-CARE Condition at Discharge Improved Instructions/Education Provided Abdominal Pain (ED) Prescriptions See Medication Section Referrals GLENIS BRIONES DO Address: [address] [place], [place] [phone] Additional Instructions/Education Reglan 10 mg tablets, one tablet up to 4 times daily as needed for abdominal pain/cramps/nausea May also use any yhek-blg-szvbwdr medications for pain needed Call Dr. Briones's office at 8:30 this morning to arrange work in appointment today Care Plan and Goals Physician Care Plan Problem: Multiple abdominal masses consistent with lymphoma Goal: Follow up with primary care provider Instructions: Take medications and follow care plan as discussed/written Reglan 10 mg tablets, one tablet up to 4 times daily as needed for abdominal pain/cramps/nausea May also use any jaxi-cev-nknwghq medications for pain needed Call Dr. Briones's office at 8:30 this morning to arrange work in appointment today Functional Status No functional status results. Allergies, Adverse Reactions, Alerts Allergen Type Severity Reaction Status Last Updated No Known Drug Allergies Allergy Unknown Active 07/13/16 Immunizations Query Response on File Recorded Date/Time Hx Influenza Vaccination No 07/13/16 6:32am Hx Pneumococcal Vaccination No 07/13/16 6:32am Hx Influenza Vaccination No 07/13/16 6:32am Vital Signs Acute Vital Signs Vital Response Date/Time Temperature (Fahrenheit) 97.8 deg F (96.8 - 99.1) 07/20/2016 6:03am Temperature (Calculated Celsius) 36.76555 degrees C (36.0 - 37.3) 07/20/2016 6:03am Temperature Source Temporal 07/13/2016 8:20am Pulse Rate (adult) 89 bpm (60 - 100) 07/20/2016 6:03am Respiratory Rate 14 breaths/min (10 - 20) 07/20/2016 6:03am O2 Sat by Pulse Oximetry 95 % (90 - 100) 07/20/2016 6:03am Oxygen Delivery Method Nasal Cannula 07/13/2016 7:24am Oxygen Delivery Method Room Air 07/13/2016 9:15am Oxygen Flow Rate 2.00 L/min 07/13/2016 7:24am Blood Pressure 121/62 mm Hg 07/20/2016 6:03am Blood Pressure Source Automatic Cuff 07/13/2016 9:15am Height (Feet) 5 feet 07/20/2016 2:46am Height (Inches) 9.00 inches 07/20/2016 2:46am Weight (Kilograms) 74.400 kg 07/20/2016 2:46am Body Mass Index (BMI) 24.0 07/20/2016 2:46am Results Laboratory Results Test Name Result Units Flags Reference Collection Date/Time Result Date/ Time Comments White Blood Count 6.4 T/MM3 4.5-11.0 07/20/2016 3:36am 07/20/2016 3: 43am Red Blood Count 4.94 M/MM3 4.50-5.90 07/20/2016 3:3607/20/2016 3: 43am Hemoglobin 13.5 GM/DL 13.5-17.5 07/20/2016 3:3607/20/2016 3:43am Hematocrit 41.0 % 41-53 07/20/2016 3:3607/20/2016 3:43am Mean Corpuscular Volume 83.0 UM3 80-100 07/20/2016 3:3607/20/2016 3: 43am Mean Corpuscular Hemoglobin 27.3 UUG 26-34 07/20/2016 3:362016 3:43am Mean Corpuscular Hemoglobin Concent 32.9 GM/DL 31-37 07/20/2016 3:3607/20/2016 3:43am RDW Standard Deviation 38.8 FL 36.9-50.2 07/20/2016 3:3607/20/2016 3 :43am Platelet Count 245 T/MM3 130-400 07/20/2016 3:3607/20/2016 3:43am Mean Platelet Volume 9.0 UM3 L 9.4-12.4 07/20/2016 3:3607/20/2016 3: 43am Neutrophils (%) (Auto) 67.5 % H 33-66 07/20/2016 3:3607/20/2016 3: 43am Lymphocytes (%) (Auto) 17.1 % L 23-45 07/20/2016 3:3607/20/2016 3: 43am Monocytes (%) (Auto) 11.0 % H 0-9.0 07/20/2016 3:3607/20/2016 3:43am Eosinophils (%) (Auto) 2.8 % 0-4 07/20/2016 3:3607/20/2016 3:43am Basophils (%) (Auto) 1.4 % 0-2 07/20/2016 3:3607/20/2016 3:43am Immature Granulocyte % (Auto) 0.2 % 0.0-0.5 07/20/2016 3:362016 3:43am Absolute Neutrophils (auto) 4.3 T/MM3 1.8-7.7 07/20/2016 3:362016 3:43am Absolute Lymphocytes (auto) 1.1 T/MM3 1-4.8 07/20/2016 3:362016 3:43am Absolute Monocytes (auto) 0.7 T/MM3 0-0.8 07/20/2016 3:3607/20/2016 3:43am Absolute Eosinophils (auto) 0.2 T/MM3 0-0.5 07/20/2016 3:362016 3:43am Absolute Basophils (auto) 0.1 T/MM3 0-0.2 07/20/2016 3:3607/20/2016 3:43am Absolute Immature Granulocyte (auto 0.01 T/MM3 0.00-0.03 07/20/2016 3: 3607/20/2016 3:43am Icterus Index < 2 0-7 07/20/2016 3:3607/20/2016 3:56am Chemistry Specimen Hemolysis < 15 0-25 07/20/2016 3:3607/20/2016 3 :56am 0-25: Specimen Exhibited No Hemolysis. Turbidity < 20 0-20 07/20/2016 3:3607/20/2016 3:56am Sodium Level 141 MEQ/L 134-144 07/20/2016 3:36am 07/20/2016 3:56am Potassium Level 4.0 MEQ/L 3.6-5 07/20/2016 3:3607/20/2016 3:56am Chloride Level 104 MEQ/L 98-107 07/20/2016 3:36am 07/20/2016 3:56am Carbon Dioxide Level 26 MEQ/L 22-30 07/20/2016 3:36am 07/20/2016 3: 56am Anion Gap 11 MEQ/L 5-15 07/20/2016 3:3607/20/2016 3:56am Blood Urea Nitrogen 14.0 MG/DL 9-20 07/20/2016 3:3607/20/2016 3: 56am Creatinine 1.0 MG/DL 0.8-1.5 07/20/2016 3:3607/20/2016 3:56am BUN/Creatinine Ratio 14 RATIO 6-26 07/20/2016 3:3607/20/2016 3:56am Glomerular Filtration Rate Calc 77 07/20/2016 3:3607/20/2016 3: 56am Glucose Level 94 MG/DL 75-110 07/20/2016 3:3607/20/2016 3:56am Calculated Osmolality 272 MOSM/KG 261-280 07/20/2016 3:3607/20/2016 3:56am Calcium Level 8.9 MG/DL 8.4-10.2 07/20/2016 3:3607/20/2016 3:56am Total Bilirubin 0.50 MG/DL 0.20-1.30 07/20/2016 3:3607/20/2016 3: 56am Alkaline Phosphatase 127 U/L H 38-126 07/20/2016 3:3607/20/2016 3: 56am Total Protein 6.6 G/DL 6.3-8.2 07/20/2016 3:3607/20/2016 3:56am Albumin 3.9 G/DL 3.5-5.0 07/20/2016 3:3607/20/2016 3:56am Globulin 2.7 G/DL 2.4-3.6 07/20/2016 3:3607/20/2016 3:56am Albumin/Globulin Ratio 1.4 RATIO 1.1-2.2 07/20/2016 3:3607/20/2016 3 :56am Aspartate Amino Transf (AST/SGOT) 48 U/L 17-59 07/20/2016 3:36am 2016 3:56am Alanine Aminotransferase (ALT/SGPT) 59 U/L 21-72 07/20/2016 3:36am 3:56am Lipase 162 U/L 23-300 07/20/2016 3:3607/20/2016 3:56am Procedures Procedure Status Date Provider(s) Egd biopsy single/multiple Completed 07/13/16 GLENIS BRIONES DO [id number]"INJECTION, MIDAZOLAM HYDROCHLORIDE, PER 1 MG" Completed 07/13/16"INJECTION, FENTANYL CITRATE, 0.1 MG" Completed 07/13/16"RINGERS LACTATE INFUSION, UP TO 1000 CC" Completed 07/13/16 Encounters Encounter Location Arrival/Admit Date Discharge/Depart Date Attending Provider Departed Emergency Room [facility] 07/20/16 2:41am 07/20/16 6: 03am GLENIS FORMAN MD Departed [facility] 07/13/16 6:07am 07/13/16 9: 15am GLENIS BRIONES DO Recent Diagnosis
[2016-07-31 06:46] LABS: BASOPHILS # (AUTO) 0.1 T/MM3 (0-0.2); BASOPHILS % (AUTO) 1.5 % (0-2); EOSINOPHILS # (AUTO) 0.3 T/MM3 (0-0.5); EOSINOPHILS % (AUTO) 5.2 % (0-4); HCT - HEMATOCRIT 43.5 % (41-53); IMMATURE GRANULOCYTE # (AUTO) 0.02 T/MM3 (0.00-0.03); IMMATURE GRANULOCYTE % (AUTO) 0.4 % (0.0-0.5); LYMPHOCYTES % (AUTO) 18.7 % (23-45); MEAN CORPUSCULAR HGB 26.9 UUG (26-34); MEAN CORPUSCULAR HGB CONC(MCHC 32.2 GM/DL (31-37); MEAN CORPUSCULAR VOLUME 83.5 UM3 (80-100); MEAN PLATELET VOLUME 8.9 UM3 (9.4-12.4); MONOCYTES # (AUTO) 0.7 T/MM3 (0-0.8); MONOCYTES % (AUTO) 12.7 % (0-9.0); NEUTROPHILS #(AUTO)-ABSOLUTE 3.2 T/MM3 (1.8-7.7); NEUTROPHILS % (AUTO) 61.5 % (33-66); RED BLOOD COUNT 5.21 M/MM3 (4.50-5.90); WBC - WHITE BLOOD COUNT 5.2 T/MM3 (4.5-11.0)
[2016-07-31] MEDS ORDERED: LR 1,000 ML IV SCH (07:00)
[2016-07-31] MEDS ORDERED: NOZIN NASAL SWAB NS PRN (07:00)
[2016-07-31] MEDS ORDERED: LIDOCAINE 1% (10mg/ml) 2ml SDV INJ ONE (07:00)
[2016-07-31] MEDS ORDERED: BUPIVACAINE 0.25% (2.5mg/ml) INJ 30ml SDV ONE (07:06)
--- NOTE | 2016-07-31 07:08 | ANESPREOP ---
Anesthesia Record Date and Time DATE: 07/31/16 TIME: 07:03 Pre-Op Diagnosis Lymphoma Proposed Surgical Procedure PAC NPO since: Midnight Allergies: Coded Allergies: No Known Drug Allergies (Verified Allergy, Unknown, 07/31/16) Ht/Wt/BMI Height: 5 ' 9.00 " Weight: 73.800 kg BMI: 24.0 kg/m2 Vital Signs Date Time Temp Pulse Resp B/P Pulse Ox O2 Delivery O2 Flow Rate FiO2 07/31/16 06:27 97.8 90 16 126/70 95 Room Air Medications Inpatient Medications Current Medications Medications (Trade) Dose Ordered Sig/Zeeshan Start Time Stop Time Status Last Admin Dose Admin Lactated Ringer's (Lactated Ringers) 1,000 ml @ 50 mls/hr Q20H 07/31/16 07:00 07/31/16 06:42 50 MLS/HR Multi-Ingredient Antiseptic (Nozin Nasal Swab) 3 each PREOP PRN 07/31/16 07:00 07/31/16 06:42 3 EACH Bupropion HCl (Wellbutrin Sr) 150 Mg Tablet, 3 TAB PO DAILY, (Reported) Last Taken: on 07/30/16 1000 Lamotrigine (Lamotrigine ER) 300 Mg Tab.er.24, 1 TAB PO DAILY, (Reported) Last Taken: on 07/30/16 2300 Loratadine/Pseudoephedrine (Claritin-D 24 Hour Tablet) 1 Each Tab.er.24h, 1 TAB PO DAILY, (Reported) Last Taken: on 07/30/16 2200 Methocarbamol (Robaxin-750) 750 Mg Tablet, 750 MG PO Q4HR PRN, (Reported) Last Taken: on 07/24/16 Metoclopramide HCl (Reglan) 10 Mg Tablet, 10 MG PO QID PRN for n/v/cramps Last Taken: on 07/23/16 Multivitamins (Multivitamin) 1 Tab Tablet, 1 TAB PO DAILY, (Reported) Last Taken: on 07/30/16 1000 [place]-3 Fatty Acids/Fish Oil (Fish Oil Pearls Softgel) 1 Each Capsule, 1 CAP PO DAILY, (Reported) Last Taken: on 07/23/16 Pantoprazole Sodium (Protonix) 40 Mg Tablet.dr, 40 MG PO BID, (Reported) Take 1 tablet, by mouth, 2 times a day before Breakfast and Dinner. Last Taken: on 07/31/16529 Paroxetine HCl (Paxil) 20 Mg Tablet, 20 MG PO DAILY, (Reported) Last Taken: on 07/30/162299 Pravastatin Sodium (Pravachol) 20 Mg Tablet, 20 MG PO HS, (Reported) Take 1 tablet, by mouth, 1 times daily (at bedtime). Last Taken: on 07/30/162299 Propranolol HCl (Propranolol HCl) 20 Mg Tablet, 1 TAB PO DAILY, (Reported) Last Taken: on 07/31/16529 Sucralfate (Sucralfate) 1 Gm Tablet, 1 TAB PO HS , (Reported) Last Taken: on 07/23/16 Tamsulosin HCl (Flomax) 0.4 Mg Capsule, 0.4 MG PO HS, (Reported) Take 1 capsule, by mouth, one time a day at BEDTIME. Last Taken: on 07/30/162299 Tramadol HCl (Tramadol HCl) 50 Mg Tablet, 50 MG PO Q6HR, (Reported) Take 1 tablet, by mouth, every 6 hours. Last Taken: on 07/23/16 Discontinued Medications Bupropion HCl (Bupropion Xl) 300 Mg Tab.er.24h, 300 MG PO DAILY, (Reported) Currently on Beta Samuel: Yes Beta Samuel Last Taken: 07-30-162299 Medical/Surgical History Anesthesia PMH: Reports: Cancer (LYMPHOMA), Depression, Hyperlipidemia, Reflux , Denies: *Angina, *Diabetes, *Dyspnea, *Hypertension (TAKES BETA SAMUEL FOR TREMORS), *OK, Anesthesia Reactions (NO AIRWAY ISSUES), Arthritis, Asthma, Blood Transfusion Reac, CHF, COPD, CVA/Stroke/TIA, Cardiac Arrythmia, Clotting Problems, Deep Vein Thrombosis, Glaucoma, Hepatitis, Hiatal Hernia, Malignant Hyperthermia, Pacemaker, Pneumonia, Renal Disease, Seizures, Sleep Apnea, Thyroid Disease, Tuberculosis Smoking Status: Never smoker Has pt. smoked today?: No Use Chewing Tobacco?: No Second Hand Exposure: No Substance Use Type: does not use Alcohol Intake: none Past Surgical History Orthopedic Surgeries: No Abdominal Surgeries: No Genitourinary Surgeries: No Cardiac Surgeries: No Endocrine Surgeries: No Reproductive Surgeries: No Neurological Surgeries: No Ear Surgeries: No Nose Surgeries: No Throat Surgeries: No Other Surgeries: Yes - EGD,COLONOSCOPY,ANAL WART REMOVAL,MOLE REMOVAL Anesthesia Adverse Reactions: FOUND none Family Hx of Anesthesia Advers: none Hx of Motion Sickness: No Pertinent Findings Laboratory Tests 07/31/16 06:31 EKG Rhythm: Sinus Rhythm Physical Exam Respiratory: Lungs clear Cardiovascular: FOUND Regular rate, rhythm Airway Assessment Mallampati Score: II TMD: 3 Fingerbreadths Neck Extension: Fair Teeth: Upper Dentures Overall Assessment: No Airway Concerns ASA: 3 Plan Anesthesia Plan: TIVA Discussion Discussed risks/options/alternatives of anesthesia and questions answered. Patient consents. Nursing pain assessment noted. Present: Family Member Attestation Statement Prior to the delivery of any anesthetic medication, I examined the patient, developed the plan, obtained the patient's consent and discussed the risk and benefits of the procedure with the patient/guardian. ANIKA YU ROVING MARKER July 31, 2016 07:08
[2016-07-31] MEDS ORDERED: PROPOFOL 500mg 100 ML IV ONE (07:18)
[2016-07-31] MEDS ORDERED: FENTANYL 100mcg/2ml INJECTION ONE (07:22)
[2016-07-31] MEDS ORDERED: CEFAZOLIN 1 GRAM INJECTION IV ONE (08:00)
[2016-07-31] MEDS ORDERED: EPHEDRINE SULFATE 50mg/ml INJECTION ONE (08:02)
[2016-07-31] MEDS ORDERED: GLYCOPYRROLATE 0.4mg/2ml INJECTION ONE (08:05)
[2016-07-31] MEDS ORDERED: PROPOFOL 200mg 20 ML IV ONE (08:38)
[2016-07-31] MEDS ORDERED: SALINE FLUSH 10ml SYRINGE ONE (08:44)
--- NOTE | 2016-07-31 08:53 | GSPOSTPROC ---
Immediate Operative Note DATE: 07/31/16 TIME: 08:51 Postop Diagnosis: Lymphoma Surgical Procedure: Other (Implantation of Power Port VAD) Surgeon: Osei ASA: 3 CHARLIE SHANE MD July 31, 2016 08:53
[2016-07-31] MEDS ORDERED: OXYCODONE I.R. 5 MG TABLET PO PRN (09:00)
[2016-07-31] MEDS ORDERED: ACETAMINOPHEN 500 MG TABLET PO PRN (09:00)
[2016-07-31] MEDS ORDERED: MORPHINE 10mg/ml vl INJECTION IV PRN (09:00)
[2016-07-31] MEDS ORDERED: ONDANSETRON 4mg/2ml INJECTION IV PRN (09:00)
[2016-07-31] MEDS ORDERED: PROMETHAZINE 25 MG INJECTION IV PRN (09:00)
[2016-07-31] MEDS ORDERED: IBUPROFEN 200 MG TABLET PO PRN (09:00)
--- NOTE | 2016-07-31 09:19 | DI ---
Indication: ITS.REASON: POWER PORT PLACEMENT PROCEDURE: PORTACATH W FLUORO W 1V CXR: Encounter: Initial Comparison: None Findings: Right IJ port catheter in place with the tip projecting over the lower SVC. Lungs are clear. No pneumothorax or effusion. Heart size, pulmonary vascularity and mediastinal contours are within normal limits. Impression: New right IJ port as above. .
--- NOTE | 2016-07-31 10:55 | NUR ---
CARE OF PT RECEIVED REPORT FROM Samantha WHITLOCK RN TO ASSUME CARE OF PT.
--- NOTE | 2016-07-31 11:00 | NUR ---
WORK NOTE PER DR SHANE, I CONTACTED RACHAEL IN HIS OFFICE TO REQUEST SHE PREPARE A NOTE FOR PT'S WORK. PT IS TO BE OFF OF WORK FOR 3-4 WEEKS THERE ARE NO OPPORTUNITIES FOR LIGHT DUTY AT [facility] [address] (PER PT REPORT). RACHAEL WILL NOTIFY PT WHEN NOTE IS READY FOR DIRECTOR OF CATEGORY MANAGEMENT. PT VERBALIZED UNDERSTANDING.
--- NOTE | 2016-07-31 11:00 | NUR ---
POST OP PAIN MEDICATION PT REPORTS TO DR. SHANE THAT HE HAS TRAMADOL AT HOME TO USE FOR POST OP PAIN. DR. SHANE APPROVES THIS SO NO NEW RX GIVEN FOR PAIN MEDICINE. PT INSTRUCTED BY DR. SHANE TO CONTACT HIS OFFICE IF TRAMADOL DOES NOT CONTROL PT. PT VERBALIZED UNDERSTANDING AND WILLINGNESS TO DO SO.
--- NOTE | 2016-07-31 12:15 | ANESPO ---
Post-Op Note Date 07/31/16 Time: 11:00 Status Pt Participated in Evaluation: Pt participated in person Vital Signs Date Time Temp Pulse Resp B/P Pulse Ox O2 Delivery O2 Flow Rate FiO2 07/31/16 11:11 93 16 102/69 97 Room Air 07/31/16 08:55 96.8 6.00 Respiratory Function: Airway patent Cardiovascular Function: Regular pulse Telemetry Pattern: SR Mental Status: Alert/oriented Pain Level Intensity: 0 Hydration: Taking po fluids Complications during Recovery None apparent Follow-Up Instructions Instructions Per Surgeon ANIKA YU CRNA July 31, 2016 12:15
--- NOTE | 2016-07-31 13:07 | OPNOTEF ---
DATE OF OPERATION 07/31/2016 PREOPERATIVE DIAGNOSIS Lymphoma. POSTOPERATIVE DIAGNOSIS Lymphoma. OPERATION Implantation of PowerPort vascular access device. SURGEON Dr. Franz ANESTHESIA RUSSELL ASA CLASS 3 DESCRIPTION OF OPERATION The patient was placed in supine position on the operating table. The patient was premedicated with intravenous sedation medication administered by the nurse social service manager. The suprasternal notch area, left supraclavicular area, left infraclavicular area, left side of the neck, left shoulder, right supraclavicular area, right infraclavicular area, right side of the neck and right shoulder were all prepped and draped in routine sterile fashion. A ClassifEye ultrasound device was used to examine the right carotid artery and the right internal jugular vein. Bupivacaine 0.25% without epinephrine was infiltrated into the skin and subcutaneous tissue at the right side of the neck. A small incision was made at this area. A percutaneous venipuncture of the right internal jugular vein was then performed with ultrasound guidance. The right internal jugular vein was entered easily on the first needlestick. There was a good return of dark red nonpulsatile blood. A flexible guidewire was passed through the needle and through the right internal jugular vein down into the superior vena cava. The position of the flexible guidewire within the superior vena cava was confirmed with fluoroscopy with the C-arm at this time. Bupivacaine was infiltrated into the skin and subcutaneous tissue at an obliquely oriented incision at the right infraclavicular area. An obliquely oriented incision was made at this area and extended down through the underlying tissue. Bupivacaine was infiltrated into the tissue at this area. A subcutaneous pocket was then made beneath the inferior margin of the right infraclavicular incision. The implantable port was flushed with heparinized saline solution. The port was placed into the pocket which had been created for it between the pectoralis fascia and subcutaneous tissue at the right infraclavicular incision area. Two simple interrupted stitches of 0 Prolene suture were placed at each of the four corner suture rings to secure the port down to the underlying pectoralis fascia. The catheter was flushed with heparinized saline solution. A hemostat was inserted at the right infraclavicular wound and passed over the clavicle and beneath the subcutaneous tissue to come out at the incision at the right side of the neck. The hemostat was used to grasp the end of the catheter and pull it through a tunnel from the incision at the right side of neck down to the incision at the right infraclavicular area. A vessel dilator and sheath introducer were then advanced over the flexible guidewire into the internal jugular vein. The vessel dilator and guidewire were then removed from the peel-away sheath. The end of the catheter was introduced into the peel-away sheath. The catheter easily passed through the peel-away sheath down into the superior vena cava. The peel- away sheath was removed. The position of the catheter was checked with the C-arm. The position of the catheter was adjusted until the tip of the catheter was in the superior vena cava near the junction of the superior vena cava and right atrium. Excess catheter at the distal end of the catheter was excised and discarded. The catheter was connected to the stem of the port at the right infraclavicular subcutaneous pocket. The catheter lock was advanced onto the stem of the port to lock the catheter in place on the stem of the port. With the catheter connected to the port, heparinized saline was injected through the port and through the catheter. The position of the catheter was again checked with the C-arm. The position of the catheter appeared be satisfactory at this time. Subcutaneous tissue was closed at the obliquely oriented incision at the right infraclavicular area in two layers with a continuous simple over- and-over stitch using 3-0 Vicryl suture. Skin margins were reapproximated at the obliquely oriented right infraclavicular incision with a continuous subcuticular stitch using 4-0 Vicryl suture. Skin margins were reapproximated at the short incision at the right side of the neck in two layers with 4-0 Vicryl suture. The first layer was a continuous simple [id number] stitch using 4-0 Vicryl suture which was at the subcutaneous tissue level. Skin margins were then reapproximated with some interrupted subcuticular stitches using 4-0 Vicryl suture at the short incision at the right side of the neck. Benzoin and 1/2-inch wide Steri-Strips were applied to the incisions at the right side of the neck and at the right infraclavicular area. Sterile dressings were applied to the incisions. The patient did receive intravenous sedation medication administered by the nurse social service manager throughout the operation as needed to maintain patient comfort. The patient did appear to tolerate the operation well. BLANKA
[2016-07-31] MEDS ORDERED: SALINE FLUSH *Sterile Field* 10ml SYRINGE IVF ONE (17:10)
== END 2016-07-31 11:12 | disposition home or self-care (01) ==
LOC: NSC 06:04
PROVIDERS: ATTEND Surgery
DX: C83.33 Diffuse large B-cell lymphoma, intra-abdominal lymph nodes (principal)
CPT/HCPCS: 36415; 36561; 77001; 85025; C1788; J0690; J1642; J2704; J3010; J7120; S0020

== ENCOUNTER → 2016-07-31 | Outpatient (CLI) | payer BC ==
[~2016-07-31] MED LIST changes: +BUPIVACAINE 0.5% (5mg/ml) 30ml INJ SDV ONE; +LIDOCAINE 1% (10mg/ml) 5ml VIAL ONE; +METH500T6 PO; +PANT40TA25 PO
--- NOTE | 2016-07-31 15:34 | DI ---
Indication:ITS.REASON: C83.33 Diffuse large B-cell lymphoma; Z41.8 Encounter for other p Procedure:CT BIOPSY BONE PELVIS (MARROW) CT GUIDED BONE MARROW BIOPSY/ASPIRATION: The procedure including the benefits, risks, and alternatives were explained in detail to the patient. All of his questions were answered. They stated that they understood and wished to proceed. Informed consent was obtained. A pre-procedural timeout was done to verify the correct patient and procedure. Using sterile technique, local Xylocaine and Marcaine anesthesia, and CT guidance, an 11-gauge bone biopsy needle is advanced from a posterior approach into the right iliac bone. Approximately 10 cc of marrow is aspirated and a core biopsy was then taken. The needle was removed. There was no complication. Hemostasis was obtained and a compression bandage was applied. Following this, the patient was monitored in the CT department for 15 min. They then left the radiology department in good condition. Impression: Successful bone marrow biopsy performed from the posterior aspect of the right iliac bone. Dash Armendariz RPA/LACY performed this under my personal supervision. .
--- NOTE | 2016-08-01 07:56 | ECHOF ---
DATE OF PROCEDURE July 31, [address] Pradip Bolden This is a two-dimensional echo with spectral Doppler, color-flow and M-mode. It was obtained in a patient with lymphoma. Left atrial dimension is at the upper limits of normal. Left ventricle end-diastolic dimension is normal. Left ventricle wall thickness at the upper limits of normal. LV systolic function is normal with ejection fraction of 71%. Right atrium is normal. Right ventricle is normal. Aortic root dimension is normal. Mitral annulus is mildly calcified. Mitral valve leaflets are normal with trace of mitral regurgitation. Aortic valve appears to be normal. Tricuspid valve shows trace of tricuspid regurgitation with normal estimated pulmonary artery systolic pressure of 24. Pulmonary valve shows no pulmonary insufficiency. There is no pericardial effusion. IMPRESSION 1. Normal LV systolic function with ejection fraction of 71%. 2. Mild mitral annulus calcification with trace of mitral regurgitation. 3. Trace of tricuspid regurgitation with normal estimated pulmonary artery systolic pressure of 24. MTDD
== END ==
LOC: IMA 13:03
PROVIDERS: ATTEND Internal Medicine Hematology & Oncology
DX: C83.33 Diffuse large B-cell lymphoma, intra-abdominal lymph nodes (principal); Z41.8 Encounter for other procedures for purposes other than remedying health state
CPT/HCPCS: 38221; 77012; 93306; S0020

== ENCOUNTER → 2016-08-01 | Outpatient (CLI) | payer BC ==
[~2016-08-01] MED LIST changes: +METH500T6 PO; +PANT40TA25 PO
--- NOTE | 2016-08-01 11:52 | DI ---
Indication: ITS.REASON: C83.33 Diffuse large B-cell lymphoma; Z41.8 Encounter for other p PROCEDURE: PET/CT SKULL TO THIGH/INITIAL: Encounter: Initial Comparison: CT abdomen and pelvis dated July 20, [address] neck and chest dated July 24, 2016 Technique: 14.7 mCi of F-18 FDG was administered intravenously via the right antecubital fossa. Approximately 60 minutes later 3D PET/CT imaging was performed from the skull base through the mid thighs. The CT images are for attenuation correction purposes only. Findings: No areas of abnormal tracer uptake seen within the skull base. Mild FDG uptake within a right occipital chain node at location -604.5. This has an SUV max of 2.4. Additional focus of uptake within a left supraclavicular node at location -715.5 with an SUV max of 2.8. No metabolically active pulmonary nodules or masses. No axillary or mediastinal adenopathy. Liver uptake is homogeneous without focal active mass. Expected genitourinary and bowel uptake. Intense FDG uptake within the patient's mesenteric masses. The previously biopsied left anterior abdominal mass and conglomerate adenopathy has an SUV max of 20.7. The aortocaval mass has an SUV max of 17.6. Right mesenteric mass just inferior to this extending into the retroperitoneum has an SUV max of 14.7. There is an additional area of right external iliac chain adenopathy containing an SUV max of 9.3. Increased uptake is noted along the right inguinal canal and spermatic cord. There is a focal area of increased uptake in the left femoral head at location -1288.5. This has an SUV max of 2.7. This has a corresponding area of subtle lucency on the attenuation correction CT but appears similar to the contralateral side. No additional areas of concerning skeletal uptake appreciated. Impression: 1. Bulky mesenteric and retroperitoneal amandeep metastatic disease with evidence of distant metastases in the left supraclavicular region and right occipital area. 2. Focal uptake in the left femoral head could represent a small osseous metastasis. Further evaluation with MRI may be helpful. .
== END ==
LOC: IMA 08:07
PROVIDERS: ATTEND Internal Medicine Hematology & Oncology
DX: C83.33 Diffuse large B-cell lymphoma, intra-abdominal lymph nodes (principal)
CPT/HCPCS: 78815; A9552

== ENCOUNTER 2016-08-02 08:45 | Inpatient (IN) | payer BC ==
[~2016-08-02] VITALS: Ht 175.3 cm; Wt 77.7 kg
[~2016-08-02 08:45] MED LIST changes: +CYCLOPHOSPHAMIDE IV ONE; +D5W IV ONE; -METH500T6 PO; -PANT40TA25 PO
--- OUTSIDE RECORDS SUMMARY | 2016-08-02 15:08 | XMS REPORT | Continuity of Care Document ---
Author Author [facility] Organization [facility] Address Unknown Phone Unavailable Support Name Relationship Address Phone BONNY MEDEIROS MD Caregiver [facility] [address] [place] [address] [address] TRAM[address] [place] [address] GLENIS BRIONES DO Caregiver [facility] [address] [place] [address] [address] [place] [phone] JHON RYAN Next Of Kin [address] [place] [address] Insurance Providers Payer Name Policy Number Subscriber Name Relationship [facility] [id number] Emma Ryan 16 Self Advance Directives Directive Response Recorded Date/Time Ordered Resuscitation Status Full Code, unverified 12/01/13 3:02pm Problems No known problems or medical conditions. Medications Medication Dose Route Sig Days/Qty Instructions Order Date Discontinued Date Status Paroxetine Hcl 30 Mg PO DAILY 04/30/08 05/06/12 Discontinued [place] Carbonate 300 Mg PO 2 TAB PM [...] 30 Qty 12/01/13 Active Fluticasone Propionate 2 [place] EA NOSTRIL DAILY 12/01/13 Active Diphenhydramine HCl [...] F (96.8 - 99.1) Temperature (Calculated Celsius) 36.05386 degrees C (36.0 - 37.3) Temperature Source [...] September 27, 2013 8:17am 86.4 N 66-159 [place] Level April 24, 2008 9:47am 0.4 MMOL/L [...] 17, 2011 6:54am Negative - Urine Specific [place] February 17, 2011 6:54am 1.005 L - [...] 27, 2013 12:08pm LAB TEST FORM REQUEST [id number] - EKG April 23, 2008 1:05pm Complete [...] potentially toxic. Vitamin D, 25-Hydroxy performed at [facility], [facility] [place] [address] Machine Stone Polisher Apprentice Shandra Palm MD 25-Hydroxy Vitamin D2 September 27, 2013 8:17am 9 ng/mL - 25-Hydroxy Vitamin D3 September 27, 2013 8:17am 36 ng/mL - Urine Microscopic Not Indicated February 17, 2011 6:54am Not indicated - Procedures Procedure Status Date Provider(s) Esophagogastroduodenoscopy (EGD) with closed biopsy completed 12/02/13 GLENIS BRIONES DO Encounters Encounter Location Date/Time Registered Clinic [facility] 09/27/13 8:12am
--- OUTSIDE RECORDS SUMMARY | 2016-08-02 15:08 | XMS REPORT | Continuity of Care Document ---
Author Author [facility] Organization [facility] Address Unknown Phone Unavailable Support Name Relationship Address Phone CHARLIE SHANE MD Caregiver [address] [facility] [place] [address] Unavailable GLENIS BRIONES DO Caregiver [phone] [facility] [address] [address] [place] [address] Unavailable JHON RYAN Next Of Kin [address] [place] [address] Insurance Providers Guarantor Emma Ryan Address [address] [place] [address] Email [email or web address] Policy Number [id number] Subscriber's Name Emma Ryan Relationship 18 Self Group Number [id number] Advance Directives Directive Response Recorded Date/Time Ordered Resuscitation Status Full Code 07/30/16 4:18pm Resuscitation Documents on File No 07/31/16 6:32am DPOA for Healthcare Only No 07/31/16 6:32am Living Will No 07/31/16 6:32am Problems Past Problems Medical Problem Onset Date [...] 1 Tab Tablet 1 Tab Oral Daily [place]-3 Fatty Acids/Fish Oil (Fish Oil Pearls Softgel) [...] 12/01/13 Discontinued Lanotrigin , Bedtime 02/06/10 Discontinued [place] Carbonate (Lithobid) 300 Mg Tablet.sa, 300 Mg [...] Date/Time Onset Date Status Reason for Hospitalization POWERPORT INSERTION 07/31/2016 9:28am Not Applicable Not Applicable Chewing Tobacco Status No 05/06/2012 3:43pm Not Applicable Not Applicable Hx Substance Use No 07/31/2016 6:36am Not Applicable Not Applicable Hx Alcohol Use No 07/31/2016 6:36am Not Applicable Not Applicable Has the pt used tobacco in the last 12 months No 07/31/2016 6:36am Not Applicable Not Applicable Query Response Start Date Stop Date Smoking Status Former smoker Hospital Discharge Instructions Instructions: Care Instructions: I was in the hospital because (patient own words): INSTALLING A PORT Discharge Diet: Resume previous diet. Discharge Activity: Restricted. Follow Up Appointments: Follow up appointment with on Sat of next week. Pending Lab / Results: No Pending Lab Expected Signs/Symptoms: Usual incisional discomfort Notify Physician If: Any concerns about appearance of wound. During Business Hours:: Please call the physician's office at [phone] and choose option 2. After Business Hours:: Please call [phone] and have the batch and furnace operator page Dr. Shane. Pain Management/Treatment: Take analgesics as prescribed. Wound/Incision Care: Remove dressings as instructed by physician. Condition at time of discharge: Good Plan of Care Discharge Date 07/31/16 11:12am Instructions/Education Provided [facility] Prescriptions See Medication Section Functional Status Query Response Date Recorded Ability to complete ADL's impeded by No change July 31, 2016 6:32am Allergies, Adverse Reactions, Alerts Allergen Type Severity Reaction Status Last Updated No Known Drug Allergies Allergy Unknown Active 07/31/16 Immunizations Query Response on File Recorded Date/Time Hx Influenza Vaccination No 07/31/16 6:36am Hx Pneumococcal Vaccination No 07/31/16 6:36am Hx Influenza Vaccination No 07/31/16 6:36am Vital Signs Acute Vital Signs Vital Response Date/Time Temperature (Fahrenheit) 96.8 deg F (96.8 - 99.1) 07/31/2016 8:55am Temperature (Calculated Celsius) 36.74646 degrees C (36.0 - 37.3) 07/31/2016 8:55am Temperature Source Temporal 07/31/2016 8:55am Pulse Rate (adult) 93 bpm (60 - 100) 07/31/2016 11:11am Respiratory Rate 16 breaths/min (10 - 20) 07/31/2016 11:11am O2 Sat by Pulse Oximetry 97 % (90 - 100) 07/31/2016 11:11am Oxygen Delivery Method Room Air 07/25/2016 4:05pm Oxygen Delivery Method Room Air 07/31/2016 11:11am Oxygen Flow Rate 6.00 L/min 07/31/2016 8:55am Blood Pressure 102/69 mm Hg 07/31/2016 11:11am Blood Pressure Source Automatic Cuff 07/31/2016 11:11am Height (Feet) 5 feet 07/31/2016 6:23am Height (Inches) 9.00 inches 07/31/2016 6:23am Weight (Kilograms) 73.800 kg 07/31/2016 6:23am Body Mass Index (BMI) 24.0 07/31/2016 6:23am Results Laboratory Results Test Name Result Units Flags Reference Collection Date/Time Result Date/ Time Comments Lipase 162 U/L 23-300 07/20/2016 3:36am 07/20/2016 3:56am Immunoglobulin G 782.30 MG/DL 700-1600 07/24/2016 12:40pm 07/24/2016 2: 50pm Immunoglobulin A 98.81 MG/DL 70-400 07/24/2016 12:40pm 07/24/2016 2: 50pm Immunoglobulin M 94.45 MG/DL 40-230 07/24/2016 12:40pm 07/24/2016 2: 50pm Alpha Fetoprotein 2.9 IU/mL 0.0-8.8 07/24/2016 12:40pm 07/24/2016 10: 49pm Alpha-Fetoprotein performed at [facility] Reference Lab, [address] [place] [address] Process Coach Dacia Hurtado DO Serum Total Protein 6.3 g/dL 6.1-7.7 07/24/2016 12:40pm 07/24/2016 10: 26pm Immunoelectrophoresis, no IMQ performed at [facility] Reference [facility], [address] [place] [address] Process Coach Dacia Hurtado DO Albumin (PEP) 3.7 g/dL 2.6-4.5 07/24/2016 12:40pm 07/25/2016 12:51pm Fuxus-3-Tzmnsuyxg 0.4 g/dL 0.3-0.5 07/24/2016 12:40pm 07/25/2016 12: 51pm Mshus-0-Aixcinvri 1.0 g/dL 0.6-1.2 07/24/2016 12:40pm 07/25/2016 12: 51pm Eayx-8-Xlhnrcqo 0.3 g/dL L 0.4-0.6 07/24/2016 12:40pm 07/25/2016 12: 51pm Crlq-9-Ltwmyvjj 0.3 g/dL 0.2-0.5 07/24/2016 12:40pm 07/25/2016 12:51pm Gamma Globulins 0.7 g/dL 0.4-1.7 07/24/2016 12:40pm 07/25/2016 12:51pm Albumin % (PEP) 58.2 % 48.7-61.8 07/24/2016 12:40pm 07/25/2016 12:51pm Uhpox-7-Fokbrczbr (%) 6.4 % 3.4-8.3 07/24/2016 12:40pm 07/25/2016 12: 51pm Hgzda-8-Blprsitql (%) 16.4 % 8.4-17.5 07/24/2016 12:40pm 07/25/2016 12: 51pm Djnm-0-Hgvhplub (%) 4.5 % L 5.4-8.9 07/24/2016 12:40pm 07/25/2016 12: 51pm Vxmp-7-Jkcnieqm (%) 3.9 % 3.8-7.7 07/24/2016 12:40pm 07/25/2016 12: 51pm Gamma Globulins (%) 10.6 % 8.1-23.0 07/24/2016 12:40pm 07/25/2016 12: 51pm Immunoelectrophoresis, no IMQ performed at [facility] Reference [facility], [facility] [place] [address] Process Coach Dacia Hurtado DO Protein Electrophoresis Comment - 07/24/2016 12:40pm 07/25/2016 12: 51pm Decreased beta-1 fraction. No monoclonal peaks or restricted areas observed by immunofixation. Free [place]/Lambda Light Chain Ratio 1.65 07/24/2016 12:40pm 2016 2:15pm Reference Range: 0.2600-1.65 Test Performed by: [facility] [address] [place] [address] Immunoglobulin Free Light Chains, Serum performed at [facility], [address] [place] [address] Process Coach Afua Gamble MD Free [place] Light Chains 2.46 mg/dL H 07/24/2016 12:40pm 07/26/2016 2: 15pm Reference Range: 0.3300-1.94 Free Lambda Light Chains 1.49 mg/dL () 07/24/2016 12:40pm 07/26/2016 2: 15pm Reference Range: 0.5700-2.63 Test Performed by: [facility] [address] [place] [address] Immunoglobulin Free Light Chains, Serum performed at [facility], [address] [place] [address] Process Coach Afua Gamble MD Reference Range: 0.5700-2.63 --- 07/26/16 1415 --- IFLCLA previously reported as: 1.49 mg/dL Reference Range: 0.5700-2.63 Test Performed by: [address] [address] Immunoglobulin Free Light Chains, Serum performed at [facility], [address] [place] [address] Process Coach Afua Gamble MD Prothromb Time International Ratio 1.17 H 0.76-1.04 07/25/2016 11:46am 07/25/2016 11:59am THERAPUTIC RANGE=2.00-3.00 FOR ANTI-THROMBOSIS THERAPUTIC RANGE=2.50-3.50 FOR IMPLANTED VALVE Icterus Index < 2 0-7 07/27/2016 1:15pm 07/27/2016 1:29pm Chemistry Specimen Hemolysis < 15 0-25 07/27/2016 1:15pm 07/27/2016 1 :29pm 0-25: Specimen Exhibited No Hemolysis. Turbidity < 20 0-20 07/27/2016 1:15pm 07/27/2016 1:29pm Sodium Level 144 MEQ/L 134-144 07/27/2016 1:15pm 07/27/2016 1:29pm Potassium Level 4.4 MEQ/L 3.6-5 07/27/2016 1:15pm 07/27/2016 1:29pm Chloride Level 104 MEQ/L 98-107 07/27/2016 1:07/27/2016 1:29pm Carbon Dioxide Level 28 MEQ/L 22-30 07/27/2016 1:07/27/2016 1: 29pm Anion Gap 12 MEQ/L 5-15 07/27/2016 1:07/27/2016 1:29pm Blood Urea Nitrogen 11.0 MG/DL 9-20 07/27/2016 1:07/27/2016 1: 29pm Creatinine 1.0 MG/DL 0.8-1.5 07/27/2016 1:07/27/2016 1:29pm BUN/Creatinine Ratio 11 RATIO 6-26 07/27/2016 1:07/27/2016 1:29pm Glomerular Filtration Rate Calc 77 07/27/2016 1:07/27/2016 1: 29pm Glucose Level 105 MG/DL 75-110 07/27/2016 1:07/27/2016 1:pm Calculated Osmolality 276 MOSM/KG 261-280 07/27/2016 1:07/27/2016 1:29pm Calcium Level 9.8 MG/DL 8.4-10.2 07/27/2016 1:07/27/2016 1:29pm Total Bilirubin 0.60 MG/DL 0.20-1.30 07/27/2016 1:07/27/2016 1: 29pm Alkaline Phosphatase 128 U/L H 38-126 07/27/2016 1:07/27/2016 1: 29pm Total Protein 7.2 G/DL 6.3-8.2 07/27/2016 1:07/27/2016 1:29pm Albumin 4.3 G/DL 3.5-5.0 07/27/2016 1:07/27/2016 1:29pm Globulin 2.9 G/DL 2.4-3.6 07/27/2016 1:07/27/2016 1:29pm Albumin/Globulin Ratio 1.5 RATIO 1.1-2.2 07/27/2016 1:07/27/2016 1 :29pm Aspartate Amino Transf (AST/SGOT) 61 U/L H 17-59 07/27/2016 1:07/27 1:29pm Alanine Aminotransferase (ALT/SGPT) 93 U/L H 21-72 07/27/2016 1:15pm 1:29pm Lactate Dehydrogenase 1225 U/L H 313-618 07/27/2016 1:15pm 07/27/2016 1: 29pm Magnesium Level 2.2 MG/DL 1.6-2.3 07/27/2016 1:15pm 07/27/2016 1:29pm Uric Acid 7.6 MG/DL 3.5-8.5 07/27/2016 1:15pm 07/27/2016 1:29pm Hepatitis B Surface Antigen NEGATIVE NEGATIVE 07/27/2016 1:15pm 07/27 10:14pm Hepatitis B Core IgM Antibody NEGATIVE NEGATIVE 07/27/2016 1:pm 9:56pm White Blood Count 5.2 T/MM3 4.5-11.0 07/31/2016 6:3107/31/2016 6: 46am Red Blood Count 5.21 M/MM3 4.50-5.90 07/31/2016 6:3107/31/2016 6: 46am Hemoglobin 14.0 GM/DL 13.5-17.5 07/31/2016 6:3107/31/2016 6:46am Hematocrit 43.5 % 41-53 07/31/2016 6:07/31/2016 6:46am Mean Corpuscular Volume 83.5 UM3 80-100 07/31/2016 6:3107/31/2016 6: 46am Mean Corpuscular Hemoglobin 26.9 UUG 26-34 07/31/2016 6:312016 6:46am Mean Corpuscular Hemoglobin Concent 32.2 GM/DL 31-37 07/31/2016 6:3107/31/2016 6:46am RDW Standard Deviation 40.4 FL 36.9-50.2 07/31/2016 6:3107/31/2016 6 :46am Platelet Count 283 T/MM3 130-400 07/31/2016 6:3107/31/2016 6:46am Mean Platelet Volume 8.9 UM3 L 9.4-12.4 07/31/2016 6:07/31/2016 6: 46am Neutrophils (%) (Auto) 61.5 % 33-66 07/31/2016 6:07/31/2016 6: 46am Lymphocytes (%) (Auto) 18.7 % L 23-45 07/31/2016 6:07/31/2016 6: 46am Monocytes (%) (Auto) 12.7 % H 0-9.0 07/31/2016 6:07/31/2016 6:46am Eosinophils (%) (Auto) 5.2 % H 0-4 07/31/2016 6:07/31/2016 6:46am Basophils (%) (Auto) 1.5 % 0-2 07/31/2016 6:07/31/2016 6:46am Immature Granulocyte % (Auto) 0.4 % 0.0-0.5 07/31/2016 6:2016 6:46am Absolute Neutrophils (auto) 3.2 T/MM3 1.8-7.7 07/31/2016 6:2016 6:46am Absolute Lymphocytes (auto) 1.0 T/MM3 1-4.8 07/31/2016 6:2016 6:46am Absolute Monocytes (auto) 0.7 T/MM3 0-0.8 07/31/2016 6:07/31/2016 6:46am Absolute Eosinophils (auto) 0.3 T/MM3 0-0.5 07/31/2016 6:2016 6:46am Absolute Basophils (auto) 0.1 T/MM3 0-0.2 07/31/2016 6:07/31/2016 6:46am Absolute Immature Granulocyte (auto 0.02 T/MM3 0.00-0.03 07/31/2016 6: 07/31/2016 6:46am Name: EMMA RYAN Unit #: [id number] : 1960 Sex: M Admit Date: Loc / Svc: [facility] Discharge Date: DIAGNOSTIC IMAGING REPORT Report #: [id number] [facility] KAYLAN Cheema Indication: ITS.REASON: POWER PORT PLACEMENT PROCEDURE: PORTACATH W FLUORO W 1V CXR: Encounter: Initial Comparison: None Findings: Right IJ port catheter in place with the tip projecting over the lower SVC. Lungs are clear. No pneumothorax or effusion. Heart size, pulmonary vascularity and mediastinal contours are within normal limits. Impression: New right IJ port as above. . Procedures Procedure Status Date Provider(s) Egd biopsy single/multiple Completed 07/13/16 GLENIS BRIONES DO [id number]"INJECTION, MIDAZOLAM HYDROCHLORIDE, PER 1 MG" Completed 07/13/16095881"INJECTION, FENTANYL CITRATE, 0.1 MG" Completed 07/13/16611649"RINGERS LACTATE INFUSION, UP TO 1000 CC" Completed 07/13/16 Ct abd & pelv w/contrast Completed 07/20/16 Comprehen metabolic panel Completed 07/20/16 Assay of lipase Completed 07/20/16 Complete cbc w/auto diff wbc Completed 07/20/16 Hydrate iv infusion add-on Completed 07/20/16 Ther/proph/diag inj iv push Completed 07/20/16 Tx/pro/dx inj new drug addon Completed 07/20/16 Emergency dept visit Completed 07/20/16868582"INJECTION, KETOROLAC TROMETHAMINE, PER 15 MG" Completed 07/20/16566816"INJECTION, METOCLOPRAMIDE HCL, UP TO 10 MG" Completed 07/20/16159996"INFUSION, NORMAL SALINE SOLUTION , 1000 CC" Completed 07/20/16470656"INFUSION, NORMAL SALINE SOLUTION , 250 CC" Completed 07/20/16842809"LOW OSMOLAR CONTRAST MATERIAL, 300-399 MG/ML IODINE C Completed Insertion of vascular catheter Completed 07/31/16 CHARLIE SHANE MD Encounters Encounter Location Arrival/Admit Date Discharge/Depart Date Attending Provider Departed [facility] Day [facility] 07/31/16 6:04am 07/31/16 11 :12am CHARLIE SHANE MD Registered Clinic [facility] 07/27/16 12:55pm JESSE SEYMOUR Departed Clinic [facility] 07/25/16 11:04am 07/25/16 4:31pm IRENA GONZALEZ MD Registered [facility] 07/24/16 11:27am EJSSE SEYMOUR Departed Emergency Room [facility] 07/20/16 2:41am 07/20/16 6: 03am GLENIS FORMAN MD Departed Surgical Day Care [facility] 07/13/16 6:07am 07/13/16 9: 15am GLENIS BRIONES DO
[2016-08-02 15:27] VITALS: Ht 175.3 cm; Wt 77.7 kg
[2016-08-02 15:32] VITALS: BP 119/69; PULSE 89; RESP 16; TEMP 96.4; O2SAT 97
--- NOTE | 2016-08-02 16:10 | CONSPD ---
KAI GOODWIN RETAIL OFFICE ASSOCIATE 08/02/16 1607: Consultation Info Date DATE: 08/02/16 TIME: 16:04 Date of Consultation: August 02, 2016 Attending Physician: Dr. Glenis Rudolph Reason for Consultation: Non-Hodgkins lymphoma HPI - Adult Date DATE: 08/02/16 TIME: 16:04 General History of Present Illness 56-year-old male, new patient to Dr. Bolden, presented with worsening abdominal pain to emergency room; a CT scan of the abdomen showed extensive mesenteric and retroperitoneal adenopathy with the largest matted node mass measuring 9.9 x 7.6 cm. Biopsy on 07/25/2016 showed diffuse large B-cell lymphoma. The patient underwent Port-A-Cath placement by Dr. Franz 08/01/16. PET scan on 07/02/2016 demonstrated bulky mesenteric and retroperitoneal amandeep metastatic disease with a SUV of up to 20. There is also hypermetabolic activity in the left supraclavicular region, right occipital area and left femoral head. His chief complaint is nausea but no vomiting, decreased appetite. He denies fever, but has drenching sweating at night. He has constipation, passes gas. States last bowel movement 5 days ago. He has lost about 8 pounds the last 6 months. Normal voiding, no dysuria or hematuria. Headache yesterday, relieved with tramadol/Tylenol. No headache today. No vision changes. No lumps or bumps or other complaints. 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 07/25/16 Pantoprazole Sodium (Protonix) 40 Mg Tablet.dr, 40 MG PO BID for ACID REFLUX, TAB Take 1 tablet, by mouth, 2 times a day before Breakfast and Dinner. 07/25/16 Sucralfate (Sucralfate) 1 Gm Tablet, 1 TAB PO HS, #30 07/24/16 Bupropion HCl (Wellbutrin Sr) 150 Mg Tablet, 3 TAB PO DAILY 07/24/16 Tamsulosin HCl (Flomax) 0.4 Mg Capsule, 0.4 MG PO HS, CAP Take 1 capsule, by mouth, one time a day at BEDTIME. 07/12/16 Propranolol HCl (Propranolol HCl) 20 Mg Tablet, 1 TAB PO DAILY 07/12/16 Paroxetine HCl (Paxil) 20 Mg Tablet, 20 MG PO DAILY, TAB 07/12/16 [place]-3 Fatty Acids/Fish Oil (Fish Oil Pearls Softgel) 1 Each Capsule, 1 CAP PO DAILY 01/11/15 Lamotrigine (Lamotrigine ER) 300 Mg Tab.er.24, 1 TAB PO DAILY, TAB 01/11/15 Pravastatin Sodium (Pravachol) 20 Mg Tablet, 20 MG PO HS, TAB Take 1 tablet, by mouth, 1 times daily (at bedtime). 12/01/13 Loratadine/Pseudoephedrine (Claritin-D 24 Hour Tablet) 1 Each Tab.er.24h, 1 TAB PO DAILY, TAB 12/01/13 Methocarbamol (Robaxin-750) 750 Mg Tablet, 750 MG PO Q4HR Y 05/06/12 Multivitamins (Multivitamin) 1 Tab Tablet, 1 TAB PO DAILY 05/06/12 Allergies: Coded Allergies: acetaminophen (Verified Allergy, Mild, NAUSEA, 08/02/16) hydrocodone (Verified Allergy, Mild, NAUSEA, 08/02/16) Family History Family History: Father, , mouth cancer, cause of : Stroke age 69 Maternal grandfather, prostate cancer, paternal grandfather unknown cancer Social History Smoking Status: Never smoker Does patient use chewing tobac: No Second Hand Exposure: No Substance Use Type: does not use Alcohol Intake: none Advance Directives: No DPOA for Healthcare Only Review of Systems Constitutional: REPORTS: night sweats, see HPI, weight loss, DENIES: chills, fever Eyes Vision: DENIES: double vision, loss of visual clement ENMT Mouth/Throat: DENIES: sore throat, sores Cardiovascular DENIES: chest pain, dyspnea on exertion Vascular: DENIES: pedal edema Pulmonary Respiratory: DENIES: cough, dyspnea GI Upper Abdomen: heartburn/indigestion, nausea, pain (intermittent for past 3-4 months.) Lower Abdomen: constipation, DENIES: blood in stool, diarrhea General: DENIES: dysuria, frequency, hematuria Musculoskeletal General: DENIES: joint pain, weakness Integumentary Skin: DENIES: itching, rash, sores Neurological General: headache, see HPI, DENIES: change in strength, numbness Psychiatric Psychiatric: other (history bipolar disorder), DENIES: anxiety, nervousness Endocrine DENIES: heat/cold intolerance Hematologic/Lymphatic DENIES: anemia, frequent nosebleeds Physical Exam General General Nourishment: well nourished, well developed General Body Habitus: well groomed Vital Signs Vital Signs Date Time Temp Pulse Resp B/P Pulse Ox O2 Delivery O2 Flow Rate FiO2 08/02/16 15:32 96.4 89 16 119/69 97 Room Air Height (Feet): 5 Height (Inches): 9.00 Eyes Brief: FOUND: EOMI, PERRL, NOT FOUND: scleral icterus Neck Brief: NOT FOUND: adenopathy, tenderness Respiratory Brief: FOUND: clear all clement, equal bilaterally, NOT FOUND: wheezes Cardiovascular (brief) Cardiac Brief: FOUND: regular rate, regular rhythm, NOT FOUND: murmur, pedal edema Abdomen (brief) Abdominal Brief: FOUND: BS normo active x4, soft, tender (mild with exam.), NOT FOUND: hepatosplenomegaly Lymphatic (brief) Lymphatic Brief: NOT FOUND: adenopathy Musculoskeletal (brief) Musculoskeletal Brief: NOT FOUND: loss of motion, tenderness Integumentary (brief) Integumentary Brief: FOUND: dry, warm, NOT FOUND: rash Neurologic (brief) Neurological Brief: FOUND: cranial 2-12 intact, motor (no acute motor deficit) Neurologic RN Documented GCS Eye Opening: Verbal: Motor: Total: Psychiatric (brief) FOUND: alert, attentive, normal affect, oriented Impression/Recommendation Impression 1. Stage IIIB Diffuse large B-cell lymphoma, with extensive abdominal matted lymph nodes. 2. Bipolar disorder 3. Fajardo's esophagus. Last EGD June 2016, showed no residual Fajardo's esophagus. Recommendation Admit for first cycle of chemotherapy, R-CHOP with rasburicase- see orders. Note , echocardiogram has been done, shows normal EF of 71%. Will monitor patient closely for renal function, tumor lysis syndrome, and follow counts. Have spoken with Dr. Rudolph; IV fluids ordered, he will see patient later today. Dr. Blank will also see patient later today. Patient has no questions. YASMIN BLANK MD 08/02/161939: Past Medical History Current Medications Home Meds Active Scripts Metoclopramide HCl (Reglan) 10 Mg Tablet, 10 MG PO QID Y for n/v/cramps, #30 TAB 0 Refills Prov:GLENIS FORMAN MD 07/20/16 Reported Medications Tramadol HCl (Tramadol HCl) 50 Mg Tablet, 50 MG PO Q6HR, TAB Take 1 tablet, by mouth, every 6 hours. 07/25/16 Pantoprazole Sodium (Protonix) 40 Mg Tablet.dr, 40 MG PO BID for ACID REFLUX, TAB Take 1 tablet, by mouth, 2 times a day before Breakfast and Dinner. 07/25/16 Sucralfate (Sucralfate) 1 Gm Tablet, 1 TAB PO HS, #30 07/24/16 Bupropion HCl (Wellbutrin Sr) 150 Mg Tablet, 3 TAB PO DAILY 07/24/16 Tamsulosin HCl (Flomax) 0.4 Mg Capsule, 0.4 MG PO HS, CAP Take 1 capsule, by mouth, one time a day at BEDTIME. 07/12/16 Propranolol HCl (Propranolol HCl) 20 Mg Tablet, 1 TAB PO DAILY 07/12/16 Paroxetine HCl (Paxil) 20 Mg Tablet, 20 MG PO DAILY, TAB 07/12/16 [place]ios-3 Fatty Acids/Fish Oil (Fish Oil Pearls Softgel) 1 Each Capsule, 1 CAP PO DAILY 01/11/15 Lamotrigine (Lamotrigine ER) 300 Mg Tab.er.24, 1 TAB PO DAILY, TAB 01/11/15 Pravastatin Sodium (Pravachol) 20 Mg Tablet, 20 MG PO HS, TAB Take 1 tablet, by mouth, 1 times daily (at bedtime). 12/01/13 Loratadine/Pseudoephedrine (Claritin-D 24 Hour Tablet) 1 Each Tab.er.24h, 1 TAB PO DAILY, TAB 12/01/13 Methocarbamol (Robaxin-750) 750 Mg Tablet, 750 MG PO Q4HR Y 05/06/12 Multivitamins (Multivitamin) 1 Tab Tablet, 1 TAB PO DAILY 05/06/12 Allergies: Coded Allergies: acetaminophen (Verified Allergy, Mild, NAUSEA, 08/02/16) hydrocodone (Verified Allergy, Mild, NAUSEA, 08/02/16) Impression/Recommendation Recommendation I have seen and examined the patient, I agreed with the plan of CHP-R developed by Dr. Bolden and as outlined by Toña Goodwin APRN. KAI GOODWIN APRN August 02, 2016 16:07 YASMIN BLANK MD August 02, 2016 19:40
[2016-08-02] MEDS ORDERED: TRAMADOL 50 MG TABLET PO PRN (16:15)
[2016-08-02] MEDS ORDERED: NORMAL SALINE 1,000 ML IV ONE (16:15)
[2016-08-02] MEDS ORDERED: ACETAMINOPHEN 325 MG TABLET PO ONE ×2 (16:30→19:00)
[2016-08-02] MEDS ORDERED: DOXORUBICIN IV ONE ×2 (16:30→23:00)
[2016-08-02] MEDS ORDERED: FOSAPREPITANT IV ONE ×2 (16:30→19:45)
[2016-08-02] MEDS ORDERED: DEXAMETHASONE 10 MG in NORMAL SALINE 50 ML IV ONE ×2 (16:30→19:15)
[2016-08-02] MEDS ORDERED: PALONOSETRON 0.25mg/5ml INJECTION IV ONE ×2 (16:30→19:00)
[2016-08-02] MEDS ORDERED: NORMAL SALINE IV ONE ×6 (16:30→21:15)
[2016-08-02] MEDS ORDERED: RTU SALINE IV ONE ×2 (16:30→23:00)
[2016-08-02] MEDS ORDERED: SODIUM BICARBONATE 100 MEQ in D5W 1,000 ML IV ONE (17:00)
--- NOTE | 2016-08-02 17:00 | NUR ---
admit Pt to room at 1530, V/S taken and stable on RA. PAC accessed, flushes and aspirates well. Talked with Toña Maldonado from [facility] and waiting new orders from dr Rudolph as attending. NS bolus to be given and hydration fluid ordered, started 2nd IV site. Pt ate dinner and drinking well. Teaching done for new meds he will be receiving, no questions at this time.
[2016-08-02] MEDS ORDERED: DiphenhydrAMINE 50 MG/ML INJECTION IV ONE ×3 (17:15→20:15)
[2016-08-02] MEDS ORDERED: RASBURICASE IV ONE ×2 (17:15→20:30)
[2016-08-02] MEDS ORDERED: RITUXIMAB IV ONE ×2 (18:00→21:15)
[2016-08-02] MEDS ORDERED: HYDROCORTISONE 100mg/2ml Injection IV PRN (18:00)
[2016-08-02] MEDS ORDERED: DiphenhydrAMINE 50 MG/ML INJECTION IV PRN (18:00)
--- NOTE | 2016-08-02 18:17 | HPPDOC ---
HPI - Adult Date DATE: 08/02/16 TIME: 17:56 General Chief Complaint: chemotherapy for diffuse large B-cell lymphoma History of Present Illness Michael is a very pleasant 56-year-old male who presented with worsening abdominal pain to emergency room; a CT scan of the abdomen showed extensive mesenteric and retroperitoneal adenopathy with the largest matted node mass measuring 9.9 x 7.6 cm. Biopsy on 07/25/2016 showed diffuse large B-cell lymphoma. The patient underwent Port-A-Cath placement by Dr. Franz 08/01/16. PET scan on 2016 demonstrated bulky mesenteric and retroperitoneal amandeep metastatic disease with a SUV of up to 20. There is also hypermetabolic activity in the left supraclavicular region, right occipital area and left femoral head. His chief complaint is nausea but no vomiting, decreased appetite. He denies fevers or chills, but has drenching night sweats. He has constipation, passes gas. States last bowel movement 5 days ago. He has lost about 8 pounds the last 6 months. Normal voiding, no dysuria or hematuria. Headache yesterday, relieved with tramadol/Tylenol. No headache today. No vision changes. No lumps or bumps or other complaints. 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 Franz in 2004, 2014. EGD with Dr. Franz in 2004, with Dr. Briones in 2011, 2012, 2014, and 2016. Anal wart removal. Current Medications Home Meds Active Scripts Metoclopramide HCl (Reglan) 10 Mg Tablet, 10 MG PO QID Y for n/v/cramps, #30 TAB 0 Refills Prov:GLENIS FORMAN MD 07/20/16 Reported Medications Tramadol HCl (Tramadol HCl) 50 Mg Tablet, 50 MG PO Q6HR, TAB Take 1 tablet, by mouth, every 6 hours. 07/25/16 Pantoprazole Sodium (Protonix) 40 Mg Tablet.dr, 40 MG PO BID for ACID REFLUX, TAB Take 1 tablet, by mouth, 2 times a day before Breakfast and Dinner. 07/25/16 Sucralfate (Sucralfate) 1 Gm Tablet, 1 TAB PO HS, #30 07/24/16 Bupropion HCl (Wellbutrin Sr) 150 Mg Tablet, 3 TAB PO DAILY 07/24/16 Tamsulosin HCl (Flomax) 0.4 Mg Capsule, 0.4 MG PO HS, CAP Take 1 capsule, by mouth, one time a day at BEDTIME. 07/12/16 Propranolol HCl (Propranolol HCl) 20 Mg Tablet, 1 TAB PO DAILY 07/12/16 Paroxetine HCl (Paxil) 20 Mg Tablet, 20 MG PO DAILY, TAB 07/12/16 [place]-3 Fatty Acids/Fish Oil (Fish Oil Pearls Softgel) 1 Each Capsule, 1 CAP PO DAILY 01/11/15 Lamotrigine (Lamotrigine ER) 300 Mg Tab.er.24, 1 TAB PO DAILY, TAB 01/11/15 Pravastatin Sodium (Pravachol) 20 Mg Tablet, 20 MG PO HS, TAB Take 1 tablet, by mouth, 1 times daily (at bedtime). 12/01/13 Loratadine/Pseudoephedrine (Claritin-D 24 Hour Tablet) 1 Each Tab.er.24h, 1 TAB PO DAILY, TAB 12/01/13 Methocarbamol (Robaxin-750) 750 Mg Tablet, 750 MG PO Q4HR Y 05/06/12 Multivitamins (Multivitamin) 1 Tab Tablet, 1 TAB PO DAILY 05/06/12 Allergies: Coded Allergies: acetaminophen (Verified Allergy, Mild, NAUSEA, 08/02/16) hydrocodone (Verified Allergy, Mild, NAUSEA, 08/02/16) Family History Family History: Father, , mouth cancer, cause of : Stroke age 69 Maternal grandfather, prostate cancer, paternal grandfather unknown cancer Alcoholism: Father, sibling. 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 Occupational Hazard: No Advance Directives: No DPOA for Healthcare Only Review of Systems Constitutional: REPORTS: fatigue, night sweats, weight loss Cardiovascular dyspnea on exertion, DENIES: chest pain, orthopnea, paroxysmal nocturnal dysp Rhythm/Rate: DENIES: irregular beat, palpitations Vascular: DENIES: Raynaud's, pallor of an extremity, pedal edema Pulmonary Respiratory: DENIES: cough, dyspnea, pleuritic chest pain, sputum, tachypnea GI Upper Abdomen: heartburn/indigestion, other (mass), pain, DENIES: dysphagia Lower Abdomen: constipation, pain General: DENIES: burning, dysuria, frequency, urgency Musculoskeletal General: DENIES: atrophy of muscles, cramps, pain, weakness Integumentary Skin: DENIES: color change, itching, rash Hair: DENIES: alopecia, dandruff, lesions Psychiatric Psychiatric: depression, suicidal ideation/attempt Comments History of bipolar disorder Endocrine DENIES: heat/cold intolerance, polydipsia, polyphagia Hematologic/Lymphatic lymphadenopathy, DENIES: bleeding gums, frequent nosebleeds Allergic/Immunological DENIES: allergic reactions, frequent infections, hives, sneezing All Other Systems All Other Systems: Reviewed Physical Exam General General Nourishment: well nourished, well developed, apparent age, adult Vital Signs Vital Signs Date Time Temp Pulse Resp B/P Pulse Ox O2 Delivery O2 Flow Rate FiO2 08/02/16 15:32 96.4 89 16 119/69 97 Room Air Height (Feet): 5 Height (Inches): 9.00 Telemetry Rhythm: Sinus Rhythm Eyes Brief: FOUND: EOMI, PERRL, NOT FOUND: scleral icterus Neck Brief: FOUND: adenopathy (posterior chain, left supraclavicular, and inguinal adenopathy), NOT FOUND: JVD, carotid bruits, thyromegaly Respiratory Brief: FOUND: clear all clement, equal bilaterally, NOT FOUND: rales , wheezes Cardiovascular (brief) Cardiac Brief: FOUND: regular rate, regular rhythm, NOT FOUND: gallop, murmur, pedal edema Abdomen (brief) Abdominal Brief: FOUND: BS normo active x4, other (large palpable mass in the left abdomen), soft, tender, NOT FOUND: distended, hepatosplenomegaly Lymphatic (brief) Lymphatic Brief: FOUND: adenopathy, NOT FOUND: lymphedema Musculoskeletal (brief) Musculoskeletal Brief: NOT FOUND: deformity, loss of motion, spasm, tenderness Integumentary (brief) Integumentary Brief: FOUND: dry, pink, warm, NOT FOUND: lesions, rash Neurologic (brief) Neurological Brief: FOUND: DTR 2/4 all extremities, cranial 2-12 intact, motor , sensory Neurologic RN Documented GCS Eye Opening: Verbal: Motor: Total: Psychiatric (brief) FOUND: alert, attentive, normal affect, oriented Assessment & Plan Problems: (1) Diffuse large B-cell lymphoma of lymph nodes of multiple sites Status: Acute (2) Hyperlipidemia (3) Fajadro's esophagus determined by endoscopy Status: Chronic (4) Bipolar 1 disorder Status: Chronic (5) HPV in male Status: Resolved (6) Gastroesophageal reflux Status: Chronic Qualifiers: Esophagitis presence: with esophagitis Qualified Codes: K21.0 - Gastro- esophageal reflux disease with esophagitis DVT Prophylaxis: SCD'S Code Status Hospital Course Summary Disclaimer The hospital course summary below is not to be considered part of the above Progress Note. Hospital Course Summary Patient is admitted for treatment of diffuse large B-cell lymphoma. I have discussed this therapy with Dr. Bolden at length. Upon his arrival I gave Michael 1 L of normal saline bolus followed by D5 with 2 A of bicarbonate at 125 cc an hour. Chemotherapy will be initiated at oncology's discretion. I will check his labs every 12 hours watching for any signs or symptoms of tumor lysis syndrome. GLENIS BRIONES DO August 02, 2016 18:00
[2016-08-02] MEDS ORDERED: POLYETHYL.GLYCOL 3350 PACKET 17gm PO PRN (18:45)
[2016-08-02 19:16] LABS: ALBUMIN 3.5 G/DL (3.5-5.0); ALBUMIN/GLOBULIN RATIO 1.3 RATIO (1.1-2.2); ALKALINE PHOSPHATASE 98 U/L (38-126); ALT (SGPT) 54 U/L (21-72); ANION GAP 10 MEQ/L (5-15); AST (SGOT) 39 U/L (17-59); BUN/CREATININE RATIO 11 RATIO (6-26); CALCIUM 8.7 MG/DL (8.4-10.2); CHLORIDE 101 MEQ/L (98-107); CO2 - CARBON DIOXIDE 30 MEQ/L (22-30); CREATININE 0.9 MG/DL (0.8-1.5); GLOMERULAR FILTRATION RATE 87; GLUCOSE 130 MG/DL (75-110); LDH 1405 U/L (313-618); PHOSPHORUS 2.8 MG/DL (2.5-4.5); POTASSIUM 4.2 MEQ/L (3.6-5); SODIUM 141 MEQ/L (134-144); TOTAL PROTEIN 6.1 G/DL (6.3-8.2); URIC ACID 6.3 MG/DL (3.5-8.5)
[2016-08-02] MEDS: PredniSONE 20 MG TABLET PO SCH (19:19)
[2016-08-02] MEDS ORDERED: CYCLOPHOSPHAMIDE IV ONE (22:00)
[2016-08-02] MEDS ORDERED: D5W IV ONE (22:00)
[2016-08-02 22:46] VITALS: BP 106/64; PULSE 94; RESP 16; TEMP 98.4; O2SAT 94
[2016-08-02] MEDS ORDERED: VINCRISTINE IV ONE (23:15)
--- NOTE | 2016-08-02 23:50 | NUR ---
status Pt A/O x3, V/S stable through 1st chemo dose. Pt ambulating well in room, urine output good for shift, no BM, pt stated no BM for 5 days. Bowel motivating meds ordered PRN. Pre meds given before chemo, pt tolerated, stated tired after receiving. Rituxan started with 25/hr increasing 25ml every 30 min, pt tolerated well with every increase at this time. No N/V noted. Pt denies pain and no PRN meds given.
[2016-08-02 23:53] VITALS: BP 117/65; PULSE 86; RESP 18; TEMP 96.1; O2SAT 93
[2016-08-03] VITALS (10 sets, daily range): BP systolic 110–132; BP diastolic 65–71; PULSE 74–99; RESP 14–18; TEMP 97–97.9; O2SAT 92–99
[2016-08-03] MEDS ORDERED: CYCLOPHOSPHAMIDE IV ONE (02:00)
[2016-08-03] MEDS ORDERED: D5W IV ONE (02:00)
[2016-08-03] MEDS: SODIUM BICARBONATE 100 MEQ in D5W 1,000 ML IV SCH ×5 (02:47→23:40)
[2016-08-03] MEDS: DOXORUBICIN IV ONE ×2 (03:30→03:40)
[2016-08-03] MEDS: VINCRISTINE IV ONE ×2 (03:30→03:40)
[2016-08-03] MEDS: RTU SALINE IV ONE ×2 (03:30→03:40)
[2016-08-03] MEDS ORDERED: NS 500 ML IV PRN (04:00)
[2016-08-03] MEDS ORDERED: [UNRECOGNIZED DRUG - OTHER] SQ ONE (04:00)
[2016-08-03 07:19] LABS: ALBUMIN 3.3 G/DL (3.5-5.0); ALBUMIN/GLOBULIN RATIO 1.3 RATIO (1.1-2.2); ALKALINE PHOSPHATASE 103 U/L (38-126); ALT (SGPT) 63 U/L (21-72); ANION GAP 9 MEQ/L (5-15); AST (SGOT) 39 U/L (17-59); BUN/CREATININE RATIO 19 RATIO (6-26); CALCIUM 8.6 MG/DL (8.4-10.2); CHLORIDE 100 MEQ/L (98-107); CO2 - CARBON DIOXIDE 32 MEQ/L (22-30); CREATININE 0.8 MG/DL (0.8-1.5); GLOMERULAR FILTRATION RATE 99; GLUCOSE 160 MG/DL (75-110); LDH 1345 U/L (313-618); POTASSIUM 3.8 MEQ/L (3.6-5); SODIUM 141 MEQ/L (134-144); TOTAL PROTEIN 5.9 G/DL (6.3-8.2)
[2016-08-03] MEDS ORDERED: MAGNESIUM CITRATE 296 ML SOLUTION PO ONE (08:00)
[2016-08-03 08:01] LABS: PHOSPHORUS 2.9 MG/DL (2.5-4.5); URIC ACID 2.8 MG/DL (3.5-8.5)
[2016-08-03 08:23] LABS: HCT - HEMATOCRIT 34.6 % (41-53); HGB - HEMOGLOBIN 11.2 GM/DL (13.5-17.5); MEAN CORPUSCULAR HGB 27.3 UUG (26-34); MEAN CORPUSCULAR HGB CONC(MCHC 32.4 GM/DL (31-37); MEAN CORPUSCULAR VOLUME 84.2 UM3 (80-100); MEAN PLATELET VOLUME 9.4 UM3 (9.4-12.4); RED BLOOD COUNT 4.11 M/MM3 (4.50-5.90); WBC - WHITE BLOOD COUNT 6.2 T/MM3 (4.5-11.0)
[2016-08-03 08:55] LABS: BAND NEUTROPHILS # 0.2 T/MM3; LYMPHOCYTES # (MANUAL) 0.3 T/MM3 (1-4.8); MONOCYTES # (MANUAL) 0.1 T/MM3 (0-0.8); NEUTROPHILS #(MANUAL)-ABSOLUTE 5.6 T/MM3 (1.8-7.7); TOTAL CELLS COUNTED 100 %
--- NOTE | 2016-08-03 11:14 | NUR ---
SATHISH CM VISITED PT. CM EXPLAINED ROLE AND PROVIDED CONTACT INFORMATION. PT PLANS TO RETURN HOME POST HOSPITAL STAY. PT DENIES NEEDS. PT IS AWARE TO CONTACT CM IF NEEDS ARISE.
--- NOTE | 2016-08-03 12:56 | PNPDOC ---
KAI GARCIA TRISHA 08/03/16 1246: Subjective Date DATE: 08/03/16 TIME: 12:43 Ambulating in room. Pleasant affect. No complaints of pain currently. Denies nausea. Eating 100% of offered foods. Voiding normally. States BM today. No new complaints. General: No fever positive night sweats Eyes: No redness, no pain, no diplopia ENT: No mouth sores, no trouble swallowing Cardiac: No chest pain no palpitations Pulmonary: No cough, no shortness of breath, no wheezing Abdomen: Intermittent pain, no pain currently. no nausea, vomiting, no diarrhea or constipation : No urgency, frequency, dysuria, or hematuria Musculoskeletal: No arthritis, no myalgias Neurological: No headaches, no focal weakness Skin: No rash, no sores Psychiatric: No anxiety, no depression Objective Vital Signs Vital Signs 08/03/16 08/03/16 08/03/16 08/03/16 02:00 03:29 03:52 07:30 Temp 97.7 97.0 Pulse 83 82 74 79 Resp 16 16 16 14 B/P 111/65 118/67 110/65 123/68 Pulse Ox 92 94 93 95 O2 Delivery Room Air Room Air Room Air 08/03/16 08/03/16 08:00 12:06 Temp 97.2 Pulse 79 84 Resp 14 14 B/P 132/69 Pulse Ox 99 O2 Delivery Room Air Height (Feet): 5 Height (Inches): 9.00 Weight (Kilograms): 76.200 General Alert, Orientated x 3, No Acute Distress Eyes (Brief) Eyes: FOUND: EOMI, NOT FOUND: scleral icterus ENMT (Brief) ENMT: FOUND: mucosa moist, NOT FOUND: lesions Neck (Brief) Neck: NOT FOUND: adenopathy, tenderness Respiratory (Brief) Respiratory: FOUND: clear all clement, equal bilaterally, NOT FOUND: wheezes Cardiovascular (Brief) Cardiac: FOUND: regular rate, regular rhythm, NOT FOUND: pedal edema Abdomen (Brief) Abdominal: FOUND: BS normo active x4, other (large diffuse abdominal mass), soft, NOT FOUND: tender Lymphatic (Brief) NOT FOUND: adenopathy Integumentary (Brief) FOUND: dry, warm, NOT FOUND: rash Neurologic (Brief) FOUND: cranial 2-12 intact, NOT FOUND: motor (no acute motor deficit) Psychiatric (Brief) FOUND: alert, attentive, normal affect, oriented Laboratory Laboratory Tests Test 08/02/16 18:59 08/03/16 06:29 08/03/16 06:30 Turbidity < 20 < 20 Sodium Level 141MEQ/L 141MEQ/L Potassium Level 4.2MEQ/L 3.8MEQ/L Chloride Level 101MEQ/L 100MEQ/L Carbon Dioxide Level 30MEQ/L 32MEQ/L Anion Gap 10MEQ/L 9MEQ/L Blood Urea Nitrogen 10.0MG/DL 15.0MG/DL Creatinine 0.9MG/DL 0.8MG/DL Glomerular Filtration Rate Calc 87 99 BUN/Creatinine Ratio 11RATIO 19RATIO Glucose Level 130MG/DL 160MG/DL Calculated Osmolality 272MOSM/KG 275MOSM/KG Uric Acid 6.3MG/DL 2.8MG/DL Calcium Level 8.7MG/DL 8.6MG/DL Phosphorus Level 2.8MG/DL 2.9MG/DL Magnesium Level 1.8MG/DL 2.0MG/DL Total Bilirubin 0.60MG/DL 0.40MG/DL Icterus Index < 2 < 2 Aspartate Amino Transf (AST/SGOT) 39U/L 39U/L Alanine Aminotransferase (ALT/SGPT) 54U/L 63U/L Alkaline Phosphatase 98U/L 103U/L Lactate Dehydrogenase 1405U/L 1345U/L Total Protein 6.1G/DL 5.9G/DL Albumin 3.5G/DL 3.3G/DL Globulin 2.6G/DL 2.6G/DL Albumin/Globulin Ratio 1.3RATIO 1.3RATIO Chemistry Specimen Hemolysis 19 < 15 White Blood Count 6.2T/MM3 Red Blood Count 4.11M/MM3 Hemoglobin 11.2GM/DL Hematocrit 34.6% Mean Corpuscular Volume 84.2UM3 Mean Corpuscular Hemoglobin 27.3UUG Mean Corpuscular Hemoglobin Concent 32.4GM/DL RDW Standard Deviation 39.3FL Platelet Count 210T/MM3 Mean Platelet Volume 9.4UM3 Immature Granulocyte % (Auto) % Neutrophils (%) (Auto) % Lymphocytes (%) (Auto) % Monocytes (%) (Auto) % Eosinophils (%) (Auto) % Basophils (%) (Auto) % Absolute Immature Granulocyte (auto T/MM3 Absolute Neutrophils (auto) T/MM3 Absolute Lymphocytes (auto) T/MM3 Absolute Monocytes (auto) T/MM3 Absolute Eosinophils (auto) T/MM3 Absolute Basophils (auto) T/MM3 Neutrophils % (Manual) 90.0% Band Neutrophils % 3.0% Lymphocytes % (Manual) 5.0% Monocytes % (Manual) 2.0% Absolute Neutrophils (Manual) 5.6T/MM3 Band Neutrophils # 0.2T/MM3 Lymphocytes # (Manual) 0.3T/MM3 Monocytes # (Manual) 0.1T/MM3 Red Cell Morphology Comment Normal Assessment & Plan Assessment 1. Stage IIIB Diffuse large B-cell lymphoma, with extensive abdominal matted lymph nodes. 2. Bipolar disorder. Plan/Intensity of Service Completed cycle 1 R -CHOP. One dose rasburicase given. Plan second dose of rasburicase this evening. Check BMP and uric acid tomorrow a.m. If labs stable, oncology okay with dismissal. Dr. Blank discussed plan with patient. All his questions were answered. Informed patient follow-up with Dr. Bolden Saturday, 11/15 with labs. Code Status Full Code Hospital Course Summary Disclaimer The visit summary below is not to be considered part of the above Progress Note. Hospital Course Summary Patient is admitted for treatment of diffuse large B-cell lymphoma. I have discussed this therapy with Dr. Bolden at length. Upon his arrival I gave Michael 1 L of normal saline bolus followed by D5 with 2 A of bicarbonate at 125 cc an hour. Chemotherapy will be initiated at oncology's discretion. I will check his labs every 12 hours watching for any signs or symptoms of tumor lysis syndrome. YASMIN BLANK MD 08/03/16 1829: Assessment & Plan Plan/Intensity of Service I have seen and examined the patient. She is tolerating chemotherapy Dr. Valle will see the patient over the weekend. The patient will follow up with Dr. Bolden as an outpatient. KAI GARCIA APRN August 03, 2016 12:46 YASMIN BLANK MD August 03, 2016 18:29
[2016-08-03] MEDS ORDERED: PEGFILGRASTIM 6 MG/0.6 ML SQ ONE (16:29)
[2016-08-03] MEDS: PredniSONE 20 MG TABLET PO SCH (17:57)
--- NOTE | 2016-08-03 18:14 | NUR ---
SHIFT PT HAS BEEN PLEASANT AND COOPERATIVE ALL SHIFT. PT IS A&OX3, UP WITH NO ASSIST, LOW FALL. PT DENIES PAIN, N/V AND SOA. PT IS ON ROOM AIR. PT HAS BEEN UP TO RECLINER MOST OF SHIFT, EATS 100% OF MEALS AND HAS AMBULATE IN ROOM. NO OTHER CHANGES SINCE PREVIOUS SHIFT.
[2016-08-03 18:17] LABS: ALBUMIN 3.9 G/DL (3.5-5.0); ALBUMIN/GLOBULIN RATIO 1.6 RATIO (1.1-2.2); ALKALINE PHOSPHATASE 117 U/L (38-126); ALT (SGPT) 67 U/L (21-72); ANION GAP 11 MEQ/L (5-15); AST (SGOT) 47 U/L (17-59); BUN/CREATININE RATIO 20 RATIO (6-26); CHLORIDE 97 MEQ/L (98-107); CO2 - CARBON DIOXIDE 34 MEQ/L (22-30); CREATININE 0.9 MG/DL (0.8-1.5); GLOMERULAR FILTRATION RATE 87; GLUCOSE 111 MG/DL (75-110); LDH 1454 U/L (313-618); PHOSPHORUS 2.8 MG/DL (2.5-4.5); POTASSIUM 3.6 MEQ/L (3.6-5); SODIUM 142 MEQ/L (134-144); TOTAL PROTEIN 6.4 G/DL (6.3-8.2); URIC ACID 2.6 MG/DL (3.5-8.5)
--- NOTE | 2016-08-03 19:26 | PNPDOC ---
Subjective Date DATE: 08/03/16 TIME: 19:20 Subjective Patient seen and examined. Friend at the bedside. Discussed current treatment including IVF, chemotherapy, what to expect. Odilia, converses well. No chest pain, SOB. Bladder, bowel function normal. No new complaints, questions answered. Objective Vital Signs Vital signs Vital Signs 08/03/16 08/03/16 08/03/16 08/03/16 07:30 08:00 12:06 14:46 Temp 97.0 97.2 Pulse 79 79 84 84 Resp 14 14 14 14 B/P 123/68 132/69 Pulse Ox 95 99 99 O2 Delivery Room Air Room Air Room Air 08/03/16 15:47 Temp 97.9 Pulse 80 Resp 16 B/P 119/70 Pulse Ox 98 O2 Delivery Room Air Telemetry Rhythm: Sinus Rhythm Height (Feet): 5 Height (Inches): 9.00 Weight (Kilograms): 76.200 General General Appearance: Alert, Orientated x 3, Well Developed, Cooperative, No Acute Distress Eyes (Brief) Eyes: FOUND: EOMI, PERRL, NOT FOUND: scleral icterus Neck (Brief) Neck Brief: FOUND: adenopathy, NOT FOUND: JVD, carotid bruits, thyromegaly Respiratory (Brief) Respiratory Brief: FOUND: clear all clement, equal bilaterally, NOT FOUND: rales , wheezes Cardiovascular (Brief) Cardiac: FOUND: regular rate, regular rhythm, NOT FOUND: gallop, murmur, pedal edema Abdomen (Brief) Abdominal: FOUND: BS normo active x4, soft, NOT FOUND: distended, hepatosplenomegaly, tender Comments palpable mass along the left abdomen. Extremities (Brief) Extremity : Extremity Finding: NOT FOUND: edema Lymphatic (Brief) Lymphatic Brief: FOUND: adenopathy, NOT FOUND: lymphedema Musculoskeletal (Brief) Musculoskeletal Brief: FOUND: extremities move equally, NOT FOUND: deformity, loss of motion, spasm, tenderness Integumentary (Brief) Integumentary: FOUND: dry, pink, warm, NOT FOUND: rash Neurologic (Brief) Neurologic: FOUND: cranial 2-12 intact, motor, sensory Psychiatric (Brief) Psychiatric: FOUND: alert, attentive, normal affect, oriented Laboratory Laboratory Laboratory Tests 08/03/16 06:29 Laboratory Tests 08/03/16 06:30 08/03/16 18:01 Assessment & Plan Problems: (1) Diffuse large B-cell lymphoma of lymph nodes of multiple sites Status: Acute (2) Hyperlipidemia Status: Chronic Qualifiers: Hyperlipidemia type: pure hypercholesterolemia Qualified Codes: E78.00 - Pure hypercholesterolemia, unspecified (3) Fajardo's esophagus determined by endoscopy Status: Chronic (4) Bipolar 1 disorder Status: Chronic (5) HPV in male Status: Resolved (6) Gastroesophageal reflux Status: Chronic Qualifiers: Esophagitis presence: with esophagitis Qualified Codes: K21.0 - Gastro- esophageal reflux disease with esophagitis Code Status Full Code Hospital Course Summary Disclaimer The hospital course summary below is not to be considered part of the above Progress Note. Hospital Course Summary Patient is admitted for treatment of diffuse large B-cell lymphoma. I have discussed this therapy with Dr. Bolden at length. Upon his arrival I gave Michael 1 L of normal saline bolus followed by D5 with 2 A of bicarbonate at 125 cc an hour. Chemotherapy will be initiated at oncology's discretion. I will check his labs every 12 hours watching for any signs or symptoms of tumor lysis syndrome. 08/03/16: Patient tolerating chemotherapy well. Labs reviewed. If he continues well in the AM, then DC to home. GLENIS BRIONES DO August 03, 2016 19:24
[2016-08-03] MEDS ORDERED: METH500T6 PO (19:55)
[2016-08-03] MEDS ORDERED: RASBURICASE IV ONE (21:00)
[2016-08-03] MEDS ORDERED: NORMAL SALINE IV ONE (21:00)
--- NOTE | 2016-08-03 22:45 | NUR ---
Order: Pt states he needs his bedtime/HS meds. Confirmed Med rec is current and accurate. Notified Dr. Rudolph by phone and received verbal order to continue Pt's bed time meds: Paxil, Flomax, and Lamotigrine as Pt takes at home. This nurse verbalized understanding.
[2016-08-03] MEDS ORDERED: TAMSULOSIN 0.4 MG CAPSULE PO SCH (23:00)
[2016-08-03] MEDS ORDERED: PAROXETINE 20 MG TABLET PO SCH (23:00)
[2016-08-03] MEDS ORDERED: LAMOTRIGINE 200 MG TABLET PO SCH (23:30)
[2016-08-04] VITALS: BP 128/67; PULSE 91; RESP 16; TEMP 97.6; O2SAT 93
--- NOTE | 2016-08-04 03:20 | NUR ---
Shift: Pt is a&o. Pt is pleasant and cooperative. Pt in good spirits during shift. Pt has rested well for the past couple of hours. Pt remains on room air. Pt c/o hiccoughs frequently. IVF continue as ordered to Right chest PAC. Pt denies pain. Pt is up ad dea and reports good urinary output. Report given to ROBINA Madera.
[2016-08-04 04:27] VITALS: BP_SYST 139; PULSE 100; RESP 18; TEMP 97.1; O2SAT 93
--- NOTE | 2016-08-04 05:39 | NUR ---
SUMMARY PT SLEEPING AT THE MOMENT. ALERT AND ORIENTED X3. PT IS UP AD LEDA. DENIED ANY PAIN THIS MORNING. EDUCATED ABOUT THE CALL LIGHT USE AND SAFETY. NO PRN MEDICATION GIVEN THIS MORNING BY THIS STAFF.
[2016-08-04 06:03] LABS: ANION GAP 10 MEQ/L (5-15); BUN/CREATININE RATIO 24 RATIO (6-26); CALCIUM 8.9 MG/DL (8.4-10.2); CHLORIDE 102 MEQ/L (98-107); CO2 - CARBON DIOXIDE 33 MEQ/L (22-30); CREATININE 0.8 MG/DL (0.8-1.5); GLOMERULAR FILTRATION RATE 99; GLUCOSE 176 MG/DL (75-110); MAGNESIUM 2.4 MG/DL (1.6-2.3); POTASSIUM 3.6 MEQ/L (3.6-5); SODIUM 145 MEQ/L (134-144); URIC ACID 1.1 MG/DL (3.5-8.5)
[2016-08-04 06:22] LABS: ALBUMIN 3.7 G/DL (3.5-5.0); ALBUMIN/GLOBULIN RATIO 1.6 RATIO (1.1-2.2); ALKALINE PHOSPHATASE 119 U/L (38-126); ALT (SGPT) 60 U/L (21-72); AST (SGOT) 46 U/L (17-59); LDH 1406 U/L (313-618); PHOSPHORUS 2.7 MG/DL (2.5-4.5)
[2016-08-04 07:46] VITALS: BP 137/71; PULSE 88; RESP 12; TEMP 96.2; O2SAT 96
--- NOTE | 2016-08-04 08:00 | NUR ---
Status Pt alert and oriented. Up ad dea. Pt denies pain. Vitals stable as charted. Pt's abdomen slightly distended and pt reports some tenderness with palpation. Bowel sounds active x4. Pt reports multiple stools after mag citrate given this hospitalization with last bowel movement being last evening. Pt reports having a good appetite and denies having any nausea. Orders breakfast. Will continue to monitor.
--- NOTE | 2016-08-04 08:30 | NUR ---
[place] PT HAS NEULASTA ONPRO DEVICE ADHERED TO ABDOMEN WHEN THIS RN TOOK OVER CARE. DEVICE BEEPS SHORTLY AFTER 0700-INSTRUCTIONS STATES MEDICATION WILL BEGIN ADMINISTRATING AT THIS TIME. NOW AT 0830 PT HAS REMOVED DEVICE-SOLID GREEN LIGHT ON AND MEDICATION CHAMBER EMPTY. DEVICE DISPOSED OF IN SHARPS CONTAINER PER INSTRUCTIONS.
[2016-08-04] MEDS ORDERED: LAMOTRIGINE PO SCH (09:00)
[2016-08-04] MEDS: SODIUM BICARBONATE 100 MEQ in D5W 1,000 ML IV SCH (09:15)
--- NOTE | 2016-08-04 09:30 | NUR ---
STATUS UPDATE DR. BRIONES CALLS FOR STATUS UPDATE OF PT. LABS AND PT STATUS GIVEN TO DR. BRIONES. PT ASKS ABOUT MEDICATION FOR HIS HICCUPS. PT'S CONCERN/QUESTION SHARED WITH DR. BRIONES. NO NEW ORDERS AT THIS TIME. WILL CONTINUE TO MONITOR.
--- NOTE | 2016-08-04 09:41 | DSPDOC ---
Discharge Diagnoses Discharge Diagnoses (1) Diffuse large B-cell lymphoma of lymph nodes of multiple sites (2) Fajardo's esophagus determined by endoscopy (3) Bipolar 1 disorder (4) Hyperlipidemia (5) HPV in male (6) Gastroesophageal reflux Hospital Course Patient is admitted for treatment of diffuse large B-cell lymphoma. I have discussed this therapy with Dr. Bolden at length. Upon his arrival I gave Michael 1 L of normal saline bolus followed by D5 with 2 A of bicarbonate at 125 cc an hour. Chemotherapy will be initiated at oncology's discretion. I will check his labs every 12 hours watching for any signs or symptoms of tumor lysis syndrome. 08/03/16: Patient tolerating chemotherapy well. Labs reviewed. If he continues well in the AM, then DC to home. 08/04/16: Patient doing well. Ambulating, eating well. +BM. Labs reviewed. Stable for discharge. Home Meds Reported Medications Methocarbamol (Methocarbamol) 500 Mg Tablet, 0.5 TAB PO BID Y for PAIN 08/03/16 Tramadol HCl (Tramadol HCl) 50 Mg Tablet, 50 MG PO Q6HR, TAB Take 1 tablet, by mouth, every 6 hours. 07/25/16 Pantoprazole Sodium (Protonix) 40 Mg Tablet.dr, 40 MG PO BID for ACID REFLUX, TAB Take 1 tablet, by mouth, 2 times a day before Breakfast and Dinner. 07/25/16 Sucralfate (Sucralfate) 1 Gm Tablet, 1 TAB PO HS, #30 07/24/16 Bupropion HCl (Wellbutrin Sr) 150 Mg Tablet, 3 TAB PO DAILY 07/24/16 Tamsulosin HCl (Flomax) 0.4 Mg Capsule, 0.4 MG PO HS, CAP Take 1 capsule, by mouth, one time a day at BEDTIME. 07/12/16 Propranolol HCl (Propranolol HCl) 20 Mg Tablet, 1 TAB PO TID Y for ANXIETY 07/12/16 Paroxetine HCl (Paxil) 20 Mg Tablet, 20 MG PO HS, TAB 07/12/16 [place]-3 Fatty Acids/Fish Oil (Fish Oil Pearls Softgel) 1 Each Capsule, 2 CAP PO BID 01/11/15 Lamotrigine (Lamotrigine ER) 300 Mg Tab.er.24, 1 TAB PO DAILY, TAB 01/11/15 Pravastatin Sodium (Pravachol) 20 Mg Tablet, 20 MG PO HS, TAB Take 1 tablet, by mouth, 1 times daily (at bedtime). 12/01/13 Loratadine/Pseudoephedrine (Claritin-D 24 Hour Tablet) 1 Each Tab.er.24h, 1 TAB PO DAILY, TAB 12/01/13 Multivitamins (Multivitamin) 1 Tab Tablet, 1 TAB PO DAILY 05/06/12 Discontinued Reported Medications Methocarbamol (Robaxin-750) 750 Mg Tablet, 750 MG PO Q4HR Y 05/06/12 Discontinued Scripts Metoclopramide HCl (Reglan) 10 Mg Tablet, 10 MG PO QID Y for n/v/cramps, #30 TAB 0 Refills Prov:GLENIS FORMAN MD 07/20/16 Discharge Disposition Discharged to home Copies To 1: GLENIS BRIONES DO Copies To 2: JESSE BOLDEN Follow up Condition at time of discharge: Good Follow up At [facility] in 10-[address] Reyes as scheduled or call his office to arrange. GLENIS BRIONES DO August 04, 2016 09:41
--- NOTE | 2016-08-04 11:30 | NUR ---
DISCHARGE IVL TO LEFT FOREARM D/C'D WITH CATHETER INTACT. PORT A CATH DEACCESSED AFTER BEING FLUSHED WITH 10 CC'S NORMAL SALINE AND 5 CC'S HEPARIN LOCK FLUSH. DISCHARGE INSTRUCTIONS GIVEN TO PT INCLUDING BUT NOT LIMITED TO HOME MED LIST, FOLLOW UP APPOINTMENTS, AND SIGNS AND SYMPTOMS TO WATCH FOR. PT DENIES FURTHER QUESTIONS OR CONCERNS. PT AMBULATES TO PRIVATE VEHICLE. LEAVES PER FRONT ENTRANCE.
--- NOTE | 2016-08-04 12:25 | NUR ---
PREDNISONE EMAR NOTED TO STATE PREDNISONE ORDERED FOR TOTAL OF FIVE DAYS. THIS ORDER IS CLARIFIED WITH DR. ROSS PT JUST RECEIVED TWO DOSES WHILE HERE IN THE HOSPITAL. ATTEMPTING TO NOTIFY PT OF NEED TO TAKE PREDNISONE FOR THREE MORE DAYS ORDERED.
--- NOTE | 2016-08-04 13:35 | NUR ---
PREDNISONE THIS RN IN CONTACT WITH [facility]. [facility] INFORMED THAT HE NEEDS TO TAKE PREDNISONE 100 MG PO FOR THREE MORE DAYS. THIS PRESCRIPTION CALLED TO [facility].
[2016-08-04] MEDS ORDERED: LAMOTRIGINE 200 MG TABLET PO SCH (22:00)
[2016-08-04] MEDS ORDERED: TAMSULOSIN 0.4 MG CAPSULE PO SCH (22:00)
[2016-08-04] MEDS ORDERED: PAROXETINE 20 MG TABLET PO SCH (22:00)
--- NOTE | 2016-08-06 16:07 | NUR ---
CM CM LVM
== END 2016-08-04 11:30 | disposition home or self-care (01) | DRG 847 ==
LOC: EDSTATUS 15:00 → MED 15:02 → OBSVTOIN 08-03 14:04
PROVIDERS: ADMIT Hospitalist; ATTEND Internal Medicine
DX: Z51.11 Encounter for antineoplastic chemotherapy (principal); C85.18 Unspecified B-cell lymphoma, lymph nodes of multiple sites; F31.9 Bipolar disorder, unspecified; K21.0 Gastro-esophageal reflux disease with esophagitis; K22.70 Barrett's esophagus without dysplasia; Z79.899 Other long term (current) drug therapy
CPT/HCPCS: 80053; 83615; 83735; 84100; 84550; 85025; 96361; 96365; 96366; 96367; 96372; 96375; 99218

== ENCOUNTER → 2016-08-10 | Outpatient (CLI) | payer BC ==
[~2016-08-10] MED LIST changes: -CYCLOPHOSPHAMIDE IV ONE; -D5W IV ONE; +METH500T6 PO; -METH750T89 PO; -METO-230 PO
--- NOTE | 2016-08-10 16:35 | DI ---
Indication: ITS.REASON: R19.00 PULSATILE ABD MASS US ABDOMINAL AORTA, NON-DUPLEX: Comparison: None Technique: Real-time, color-flow and spectral Doppler analysis used to evaluate the abdominal aorta. Findings: Proximal aorta measures 1.6 x 1.6 cm. Mid aorta measures 1.6 x 1.8 cm. Distal aorta measures 1.5 x 1.6 cm. Impression: No suggestion of aneurysm or leakage seen. No other acute findings. .
--- NOTE | 2016-08-10 16:44 | DI ---
Indication: ITS.REASON: R19.00 PULSATILE ABD MASS US ABDOMEN LIMITED: Comparison: CT PET fusion 08/01/2016 Technique: Real-time and color flow imaging provided Findings: Patient does show a mass lesion located below the spleen measuring approximately 6.5 cm in greatest diameter. Although there is blood flow to the mass there is no marked aneurysmal appearance. Patient shows no significant amount of free fluid in the abdomen a stone the ultrasound images. The mass is separate from the aorta although there is a 6 mm vessel visualized in the region. The mass does show blood flow. Impression: 1. Patient does show blood flow to the mass however it does not appear to be aneurysmal nor was or indication there is acute leakage. 2. CTA imaging may offer additional information. 3. Findings were directly called to ordering clinician. .
== END ==
LOC: IMA 15:57
PROVIDERS: ATTEND Internal Medicine Hematology & Oncology
DX: R19.00 Intra-abdominal and pelvic swelling, mass and lump, unspecified site (principal)